=== PATIENT | female | born 1960 | race African-American/Black ===

== ENCOUNTER 2016-07-14 20:49 | Inpatient (IN) | payer MEDICAID ==
[~2016-07-14] VITALS: Ht 162.6 cm; Wt 132.4 kg
[~2016-07-14 20:49] MED LIST: ALBUTEROL SULF8.5 GM INH; AMLODIPINE BESY10 MG ORAL; ASPIRIN81 MG ORAL; FUROSEMIDE20 M1 ORAL; GABAPENTIN100 MG ORAL; HYDROCHLOROTH12.5 M2 ORAL; METFORMIN HCL500 M1 ORAL; METOPROLOL TAR100 M1 ORAL; NITROSTAT0.4 M1 SL; NORCO 10/3251 EA ORAL; NORCO 5-325 TA1 EACH ORAL; PERCOCET 7.5-31 EACH ORAL; PREDNISONE20 MG ORAL; QUINAPRIL HCL10 MG PO; SOMA350 MG PO; TRAMADOL HCL50 MG ORAL
[2016-07-14 21:20] VITALS: BP 186/97
--- NOTE | 2016-07-14 21:39 | Emergency Room Report ---
History of Present Illness General Chief Complaint: Chest Pain Source: Patient Present Illness HPI Is a 56-year-old female with history hypertension. She also has history of chronic pain and was taking Percocet for her. Because of insurance change, she no longer seen a pain specialist or primary care Dr. She was last seen at [facility] 3 weeks ago for high blood pressure and pain issue. She was brought Tylenol No. 3. She presents with 2 day history of on and off chest pain. And localized to the left chest area. No radiation. No exertional component. No fever or chills. No diaphoresis. No shortness of breath. Because of the continued pain she took nitroglycerin and it did not get better. They gave her headache. She seen here several time for the same presentation. Allergies: Coded Allergies: MORPHINE (Verified Allergy, Severe, rash, 07/31/13) SULFAMETHOXAZOLE (Unverified Allergy, Unknown, 09/15/14) TRIMETHOPRIM (Unverified Allergy, Unknown, 09/15/14) Patient History Past Medical History: see triage record, old chart reviewed, HTN Past Surgical History: other Pertinent Family History: none Social History: Denies: alcohol use, drug use Now: No Immunizations: other Reviewed Nursing Documentation: PMH: Agreed, PSxH: Agreed Nursing Documentation-PMH Hx Hypertension: Yes Hx Asthma: Yes Hx Diabetes: Yes Hx Cancer: No Hx Gastrointestinal Problems: No Review of Systems Eye: Denies: blurred vision, eye pain ENT: Denies: ear pain, nose congestion, throat swelling Respiratory: Denies: cough, shortness of breath Cardiovascular: Reports: chest pain, Denies: palpitations Gastrointestinal: Denies: abdominal pain, diarrhea, nausea, vomiting Musculoskeletal: Denies: back pain, joint pain Skin: Denies: rash Neurological: Denies: headache, numbness Endocrine: Denies: increased thirst, increased urine Hematologic/Lymphatic: Denies: easy bruising All Other Systems: negative except mentioned in HPI Physical Exam Vital Signs Date Time Temp Pulse Resp B/P Pulse Ox O2 Delivery O2 Flow Rate FiO2 07/14/16 21:16 98.2 95 18 186/97 97 vitals with hypertension Sp02 EP Interpretation: reviewed, normal General Appearance: well appearing, no apparent distress, alert, obese Head: normocephalic, atraumatic Eyes: bilateral eye EOMI, bilateral eye PERRL ENT: hearing grossly normal, normal pharynx Neck: full range of motion, supple, no meningismus Respiratory: chest non-tender, lungs clear, normal breath sounds Cardiovascular #1: regular rate, rhythm, no murmur Gastrointestinal: normal bowel sounds, non tender, no mass, no organomegaly, no bruit, non-distended Musculoskeletal: back normal, gait/station normal, normal range of motion Psychiatric: mood/affect normal Skin: warm/dry Medical Decision Making Diagnostic Impression: Primary Impression: Accelerated essential hypertension Additional Impressions: ACS (acute coronary syndrome) Opioid dependence Qualified Codes: F11.20 - Opioid dependence, uncomplicated Chronic pain Qualified Codes: G89.29 - Other chronic pain Morbid obesity with BMI of 45.0-49.9, adult ER Course Patient presents with atypical chest pain. She does have risk factor her blood pressure and age. Because of this, will admit for further workup and cardiology consult. I see no evidence of ACS, PE, dissection to name a few. Lab Results Impression labs normal EKG Diagnostic Results Rate: normal Rhythm: NSR ST Segments: no acute changes Rhythm Strip Diag. Results EP Interpretation: yes Rate: 80 Rhythm: NSR, no PVC's, no ectopy Chest X-Ray Diagnostic Results EP Interpretation: Yes Findings: no consolidation, no effusion, no pneumothorax, no acute cardiopulmonary disease Number of Views: 1 Last Vital Signs Date Time Temp Pulse Resp B/P Pulse Ox O2 Delivery O2 Flow Rate FiO2 07/14/16 21:16 98.2 95 18 186/97 97 Status: improved Disposition: ADMITTED INPATIENT Condition: Serious FUNMI DIAS M.D. Jul 14, 2016 21:39
[2016-07-14] MEDS ORDERED: Aspirin Baby 81mg ORAL ONE (21:45)
[2016-07-14] MEDS ORDERED: HYDROmorphone 1mg/ml Carpuject IVP ONE (21:45)
[2016-07-14 22:12] LABS: BASOPHILS % (AUTO) 1.1 % (0.0-2.0); EOSINOPHILS % (AUTO) 2.1 % (0.0-3.0); LYMPHOCYTES % (AUTO) 25.7 % (20.0-45.0); MEAN CORPUSCULAR HEMOGLOBIN 23.8 PG (27.0-31.0); MEAN CORPUSCULAR HGB CONC 30.1 G/DL (32.0-36.0); MEAN CORPUSCULAR VOLUME 79 FL (80-99); MEAN PLATELET VOLUME 7.3 FL (6.5-10.1); MONOCYTES % (AUTO) 3.8 % (1.0-10.0); NEUTROPHILS % (AUTO) 67.3 % (45.0-75.0); PLATELET COUNT 237 K/UL (150-450); RED CELL DISTRIBUTION WIDTH 15.5 % (11.6-14.8); WHITE BLOOD COUNT 6.6 K/UL (4.8-10.8)
[2016-07-14 22:19] LABS: APPEARANCE,URINE SLIGHTLY CLOUDY; KETONES,URINE 1+ (NEGATIVE); LEUKOCYTE ESTERASE ,URINE 1+ (NEGATIVE); NITRITE,URINE NEGATIVE (NEGATIVE); PH,URINE 5 (4.5-8.0); PROTEIN,URINE 2+ (NEGATIVE); UROBILINOGEN,URINE 1 MG/DL (0.0-1.0)
[2016-07-14 22:20] LABS: ALANINE AMINOTRANSFERASE 11 U/L (3-33); ALBUMIN/GLOBULIN RATIO 1.2 (1.0-2.7); ANION GAP 15 (5-15); ASPARTATE AMINO TRANSFERASE 22 U/L (5-40); CALCIUM 9.7 mg/dL (8.6-10.2); CARBON DIOXIDE 28 mEQ/L (20-30); CHLORIDE 99 mEQ/L (98-107); CREATININE 0.8 mg/dL (0.5-0.9); GLOMERULAR FILTRATION RATE > 60 mL/min (>60); HEMOLYSIS 143; POTASSIUM 4.1 mEQ/L (3.4-4.9); SODIUM 142 mEQ/L (135-145); TOTAL PROTEIN 7.6 g/dL (6.6-8.7); TROPONIN I < 0.30 ng/mL (<=0.30)
[2016-07-14 22:30] LABS: CKMB < 1.5 ng/mL (< 3.8)
[2016-07-14 22:31] LABS: BACTERIA,URINE FEW /HPF; CALCIUM OXALATE CRYSTALS,UR MANY /LPF; MUCUS,URINE MANY /LPF (NONE/OCC); RBC,URINE 0-2 /HPF (0 - 2); SQUAMOUS EPITHELIAL CELL,UR MANY /LPF (NONE/OCC)
[2016-07-14 23:29] VITALS: BP 150/81
--- NOTE | 2016-07-14 23:57 | History & Physical ---
History and Physical History & Physicial H&P dictated [id number] CHRIS HARRINGTON M.D. Jul 14, 2016 23:57
[2016-07-15] MEDS ORDERED: Norco 5mg/325mg tab ORAL ONE (01:15)
[2016-07-15] MEDS ORDERED: Aspirin Baby 81mg ORAL ONE (02:00)
[2016-07-15 02:31] VITALS: BP 133/86
[2016-07-15 04:00] VITALS: BP 134/87
[2016-07-15] MEDS ORDERED: POTASSIUM CHLO20 ME1 PO (04:47)
--- NOTE | 2016-07-15 05:29 | History and Physical Report ---
DATE OF ADMISSION: 07/14/2016 REASON FOR ADMISSION: Chest pain. HISTORY OF PRESENT ILLNESS: This is a 56-year-old female with history of RA, hypertension, asthma, and diabetes type 2, presents for evaluation of left chest pain x3 days. She describes the chest pain is under her left breath that is sharp in nature, nonexertional, and nonradiating. She states that there is no factor that make the chest pain worse. She denies any GERD. She states that she has shortness of breath sometimes. She has some diaphoresis today, but no nausea or vomiting. She states that the chest pain is intermittent and stopped at one point and came back where she states her chest pain was slightly alleviated early today with nitroglycerin. She also reports bilateral knee pain, which she attributes to her RA. The patient denies any pleuritic nature to her chest pain. The patient has left heart catheterization eight years ago at [facility] without any stents placed. PAST MEDICAL HISTORY: Includes RA, hypertension, left arm nerve damage, asthma, and diabetes. PAST SURGICAL HISTORY: Negative. MEDICATIONS: Reviewed in [employer] ALLERGIES: To morphine and Bactrim. SOCIAL HISTORY: The patient smokes three cigarettes per day. She does not drink alcohol . PHYSICAL EXAMINATION: GENERAL: The patient appears comfortable. VITAL SIGNS: Temperature is 98.2 degrees, pulse is 75, respiratory rate 18, blood pressure 186/97, and O2 saturation is 97% on room air. HEENT: Normocephalic/atraumatic. NECK: Supple. No JVD. LUNGS: Clear to auscultation bilaterally. No crackles, rhonchi, or rales. CARDIOVASCULAR: Regular rate and rhythm. Normal S1 and S2. ABDOMEN: Soft, nontender, and nondistended. EXTREMITIES: No clubbing, cyanosis, or edema. PSYCHIATRIC: Appropriate mood and affect. NEUROLOGIC: The patient can move all extremities without any difficulty. LABORATORY AND DIAGNOSTIC DATA: CBC, white count 6.6, hemoglobin 14, hematocrit 45.1, and platelet count 237,000. BMP, sodium 142, potassium 4.1, chloride 99, CO2 28, BUN 12, and creatinine 0.8. Troponin is less than 0.0. Toxicology positive for marijuana and opiates. UA has many and 5 to 10 WBCs. EKG shows normal sinus rhythm without any ST changes. Chest x-ray shows no consolidation or effusions. ASSESSMENT: 1. Chest pain with risk factors including hypertension and diabetes. 2. Rheumatoid arthritis. 3. Hypertension. 4. Asthma. 5. Diabetes. PLAN: 1. Admit the patient to telemetry unit. 2. Trend troponins. 3. Stress test in the morning. 4. X-rays of both knees. 5. . TIME SPENT: Time spent on History and Physical greater than 35 minutes. Dylan Torres MD DR: Yakelin JOB#: [id number] CC:
[2016-07-15] MEDS ORDERED: Norco 5mg/325mg tab ORAL PRN (05:30)
[2016-07-15] MEDS ORDERED: Norco 10mg/325mg tab ORAL PRN (05:30)
[2016-07-15 07:47] LABS: TROPONIN I < 0.30 ng/mL (<=0.30)
[2016-07-15 08:00] VITALS: BP 145/98
[2016-07-15] MEDS ORDERED: Oxycodone/Acetaminophen 5-325 ORAL PRN ×2 (08:30)
[2016-07-15] MEDS: Heparin 5000 units/ml inj SUBQ SCH ×2 (09:18→21:09)
--- NOTE | 2016-07-15 09:57 | Diagnostic Imaging Report ---
Indication: Chest pain Technique: Single portable AP view of the chest. Findings: Comparison: 01/15/2016 Calcification and elongation of the thoracic aorta are unchanged. The bones and extra pulmonary soft tissues, remainder of the cardiomediastinal silhouette, pulmonary vasculature and parenchyma, and pleural surfaces remain unremarkable. IMPRESSION: Aortosclerosis and probable chronic hypertensive change, stable Otherwise negative portable AP chest, unchanged.
[2016-07-15] MEDS: NovoLOG Insulin Flexpen SUBQ SCH ×3 (11:30→21:00)
[2016-07-15 12:00] VITALS: BP 151/96
[2016-07-15] MEDS ORDERED: NovoLOG Insulin Flexpen SUBQ SCH (12:00)
--- NOTE | 2016-07-15 13:20 | Internal Med Progress Note ---
Subjective Date of Service: Jul 15, 2016 Physician Name Giuseppe Jules Attending Physician Dylan Torres M.D. Current Medications Medications (Trade) Dose Ordered Sig/Rene Route PRN Reason Start Time Stop Time Status Last Admin Dose Admin Atorvastatin Calcium (Lipitor) 80 mg QHS ONCE ORAL 07/15/16 21:00 07/15/16 21:01 Clonidine HCl (Catapres) 0.1 mg EVERY 6 HOURS PRN ORAL sbp>160 07/15/16 02:45 08/14/16 02:44 Dextrose (Dextrose 50%) STAT PRN IV Hypoglycemia 07/15/16 08:30 08/14/16 08:29 Heparin Sodium (Porcine) (Heparin 5000 units/ml) 5,000 units EVERY 12 HOURS SUBQ 07/15/16 09:00 08/14/16 08:59 07/15/16 09:18 Insulin Aspart (NovoLOG) AC+HS SUBQ 07/15/16 11:30 08/14/16 11:29 Oxycodone/ Acetaminophen (Percocet 10/325) 1 tab Q4H PRN ORAL Severe Pain (Pain Scale 7-10) 07/15/16 10:00 07/22/16 09:59 07/15/16 10:05 Oxycodone/ Acetaminophen (Percocet 5-325) 1 tab Q4H PRN ORAL Moderate Pain (Pain Scale 4-6) 07/15/16 08:30 07/22/16 08:29 Allergies: Coded Allergies: MORPHINE (Verified Allergy, Severe, rash, 07/31/13) SULFAMETHOXAZOLE (Unverified Allergy, Unknown, 09/15/14) TRIMETHOPRIM (Unverified Allergy, Unknown, 09/15/14) ROS Limited/Unobtainable: No Constitutional: Reports: no symptoms Cardiovascular: Reports: chest pain Respiratory: Reports: no symptoms Gastrointestinal/Abdominal: Reports: no symptoms Genitourinary: Reports: no symptoms Neurologic/Psychiatric: Reports: no symptoms Subjective 56 F admitted with chest pain. Cover for Int med-Dr Torres. Await cardiology consult. Objective Last Vital Signs Date Time Temp Pulse Resp B/P Pulse Ox O2 Delivery O2 Flow Rate FiO2 07/15/16 08:00 99.1 78 20 145/98 94 Room Air Laboratory Tests Test 07/14/16 21:52 07/14/16 22:00 07/15/16 04:45 White Blood Count 6.6 K/UL (4.8-10.8) Red Blood Count 5.70 M/UL (4.20-5.40) H Hemoglobin 14.0 G/DL (12.0-16.0) Hematocrit 45.1 % (37.0-47.0) Mean Corpuscular Volume 79 FL (80-99) L Mean Corpuscular Hemoglobin 23.8 PG (27.0-31.0) L Mean Corpuscular Hemoglobin Concent 30.1 G/DL (32.0-36.0) L Red Cell Distribution Width 15.5 % (11.6-14.8) H Platelet Count 237 K/UL (150-450) Mean Platelet Volume 7.3 FL (6.5-10.1) Neutrophils (%) (Auto) 67.3 % (45.0-75.0) Lymphocytes (%) (Auto) 25.7 % (20.0-45.0) Monocytes (%) (Auto) 3.8 % (1.0-10.0) Eosinophils (%) (Auto) 2.1 % (0.0-3.0) Basophils (%) (Auto) 1.1 % (0.0-2.0) Sodium Level 142 mEQ/L (135-145) Potassium Level 4.1 mEQ/L (3.4-4.9) Chloride Level 99 mEQ/L (98-107) Carbon Dioxide Level 28 mEQ/L (20-30) Anion Gap 15 (5-15) Blood Urea Nitrogen 12 mg/dL (7-23) Creatinine 0.8 mg/dL (0.5-0.9) Estimat Glomerular Filtration Rate > 60 mL/min (>60) Glucose Level 122 mg/dL (74-106) H Calcium Level 9.7 mg/dL (8.6-10.2) Total Bilirubin < 0.2 mg/dL (0.0-1.2) Aspartate Amino Transf (AST/SGOT) 22 U/L (5-40) Alanine Aminotransferase (ALT/SGPT) 11 U/L (3-33) Alkaline Phosphatase 92 U/L (35-104) Total Creatine Kinase 49 U/L (26-140) 29 U/L (26-140) Creatine Kinase MB < 1.5 ng/mL (< 3.8) Creatine Kinase MB Relative Index Troponin I < 0.30 ng/mL (<=0.30) < 0.30 ng/mL (<=0.30) Total Protein 7.6 g/dL (6.6-8.7) Albumin 4.2 g/dL (3.5-5.2) Globulin 3.4 g/dL Albumin/Globulin Ratio 1.2 (1.0-2.7) Urine Color Yellow Urine Appearance Slightly cloudy Urine pH 5 (4.5-8.0) Urine Specific [place] 1.025 (1.005-1.035) Urine Protein 2+ (NEGATIVE) H Urine Glucose (UA) Negative (NEGATIVE) Urine Ketones 1+ (NEGATIVE) H Urine Occult Blood Negative (NEGATIVE) Urine Nitrite Negative (NEGATIVE) Urine Bilirubin Negative (NEGATIVE) Urine Urobilinogen 1 MG/DL (0.0-1.0) H Urine Leukocyte Esterase 1+ (NEGATIVE) H Urine RBC 0-2 /HPF (0 - 2) Urine WBC 5-10 /HPF (0 - 2) H Urine Squamous Epithelial Cells Many /LPF (NONE/OCC) H Urine Calcium Oxalate Crystals Many /LPF (NONE) Urine Bacteria Few /HPF (NONE) Urine Mucus Many /LPF (NONE/OCC) H Urine Opiates Screen Positive (NEGATIVE) H Urine Barbiturates Screen Negative (NEGATIVE) Phencyclidine (PCP) Screen Negative (NEGATIVE) Urine Amphetamines Screen Negative (NEGATIVE) Urine Benzodiazepines Screen Negative (NEGATIVE) Urine Cocaine Screen Negative (NEGATIVE) Urine Marijuana (THC) Screen Positive (NEGATIVE) H Objective General: alert, cooperative, no distress, appears stated age Head: normocephalic, without obvious abnormality, atraumatic Eyes: conjunctivae/corneas clear. PERRL, EOM's intact Throat: lips, mucosa, and tongue normal. MMM Neck: supple, symmetrical, trachea midline, and no JVD Lungs: clear to auscultation bilaterally Heart: regular rate and rhythm, S1, S2 normal, no murmur, click, rub or gallop Abdomen: soft, non-tender, non-distended, bowel sounds normal; no masses or organomegaly Extremities: extremities normal, atraumatic, no cyanosis or edema Pulses: 2+ and symmetric Skin: skin color, texture, turgor normal; no rashes or lesions Neurologic: grossly normal, no focal deficits Assessment/Plan Problem List: (1) Diabetes mellitus type II, uncontrolled Assessment & Plan: Cont novolog sliding scale. (2) Asthma (3) rheumatoid arthritis pain (4) Chest pain Assessment & Plan: Serial troponin. Await Cardiac stress test and cardiology consult. (5) Hypertension Status: not improved GIUSEPPE JULES Jul 15, 2016 13:20
[2016-07-15 16:00] VITALS: BP 142/92
[2016-07-15] MEDS ORDERED: DOBUTamine 250mg/250ml Premix IV ONE (16:29)
--- NOTE | 2016-07-15 16:50 | Cardiology Report ---
APPROVED REPORT EXAM: Two-dimensional and M-mode echocardiogram with Doppler and color Doppler. INDICATION Chest Pain M-Mode DIMENSIONS IVSd1.5 (0.7-1.1cm)Left Atrium (MM)3.7 (1.6-4.0cm) LVDd5.0 (3.5-5.6cm)Aortic Root4.0 (2.0-3.7cm) PWd1.3 (0.7-1.1cm)Aortic Cusp Exc.2.1 (1.5-2.0cm) LVDs2.8 (2.5-4.0cm) PWs2.0 cm Technically difficult study due to poor acoustic windows. Study quality precludes accurate assessment of regional wall motion. Normal left ventricular chamber size, systolic function and wall motion. Left ventricular ejection fraction estimated to be 60 %. Mild left ventricular hypertrophy. No evidence of pericardial fat or effusion. All other cardiac chamber sizes are within normal limits. Mild focal aortic valve sclerosis with adequate cusp excursion. Mild thickened mitral valve leaflets with normal excursion. Mild mitral annulus and aortic root calcification. Pulmonic valve not well visualized. Normal tricuspid valve structure. IVC dilated at 2.2cm with physiologic collapse. A color flow and spectral Doppler study was performed and revealed: No aortic regurgitation. Mild to moderate mitral regurgitation. Mitral diastolic velocities suggest reduced left ventricular relaxation (Grade I). Trace tricuspid regurgitation. Tricuspid systolic velocities suggests peak right ventricular systolic pressure of 16 mmHg. Trace pulmonic regurgitation present.
[2016-07-15 20:00] VITALS: BP 142/92
[2016-07-16 00:22] VITALS: BP 136/80
[2016-07-16 04:00] VITALS: BP 139/88
[2016-07-16] MEDS: NovoLOG Insulin Flexpen SUBQ SCH ×3 (06:09→16:35)
[2016-07-16 07:53] LABS: TROPONIN I < 0.30 ng/mL (<=0.30)
[2016-07-16 08:02] LABS: BASOPHILS % (AUTO) 1.3 % (0.0-2.0); EOSINOPHILS % (AUTO) 2.2 % (0.0-3.0); LYMPHOCYTES % (AUTO) 29.5 % (20.0-45.0); MEAN CORPUSCULAR HGB CONC 30.5 G/DL (32.0-36.0); MEAN CORPUSCULAR VOLUME 79 FL (80-99); MEAN PLATELET VOLUME 7.7 FL (6.5-10.1); PLATELET COUNT 203 K/UL (150-450); RED BLOOD COUNT 5.45 M/UL (4.20-5.40); RED CELL DISTRIBUTION WIDTH 15.4 % (11.6-14.8); WHITE BLOOD COUNT 5.9 K/UL (4.8-10.8)
[2016-07-16 08:15] VITALS: BP 146/79
[2016-07-16 08:22] LABS: ANION GAP 13 (5-15); CALCIUM 9.1 mg/dL (8.6-10.2); CARBON DIOXIDE 28 mEQ/L (20-30); CHLORIDE 98 mEQ/L (98-107); CREATININE 0.5 mg/dL (0.5-0.9); GLOMERULAR FILTRATION RATE > 60 mL/min (>60); HEMOLYSIS 3; POTASSIUM 3.7 mEQ/L (3.4-4.9); SODIUM 139 mEQ/L (135-145)
[2016-07-16] MEDS: Heparin 5000 units/ml inj SUBQ SCH (09:06)
--- NOTE | 2016-07-16 09:56 | Diagnostic Imaging Report ---
Indication: PAIN Technique: 3 views of the right knee Comparison: None Findings:There is mild narrowing of the medial joint compartment, with associated osteophyte formation. No suprapatellar effusion. No acute fractures. No dislocations. Impression:Degenerative changes, as described. No acute bony trauma
[2016-07-16 11:44] VITALS: BP 124/78
--- NOTE | 2016-07-16 12:22 | Diagnostic Imaging Report ---
Indications: Chest pain Technique: Single day single isotope protocol utilized. Initially, resting images obtained using IV administration 10.5 millicuries 99M technetium Myoview. Subsequently, patient underwent Dobutamine stress testing. See cardiology report for details. During dobutamine infusion, IV administration 31.3 mCi 99 M technetium Myoview. SPECT and planar images obtained. SPECT images gated to 8 phases of the cardiac cycle were also obtained, and reformatted into cine images for evaluation of ejection fraction. Comparison: Findings: Per cardiology report, patient experienced no chest pain. Per cardiology report, resting EKG demonstrates normal sinus rhythm. No ST-T wave changes were noted during infusion. Patient achieved a peak heart rate of 142 beats for minute, and extensive heart rate 139 beats per minute. Imaging demonstrates equivocal decreased post stress perfusion in the inferolateral wall which does not change on the resting images. Calculated post stress ejection fraction 58 %. No focal wall motion abnormality demonstrated. Impression: Nonischemic clinical response to pharmacologic stress, per cardiology report Nonischemic electrocardiographic response to pharmacologic stress, per cardiology report Equivocal fixed decreased perfusion in the inferolateral wall, suspect soft tissue attenuation artifact but infarct not completely excludable. No imaging findings to suggest ischemia, at level of stress achieved. Calculated post stress ejection fraction 58%
--- NOTE | 2016-07-16 12:22 | Diagnostic Imaging Report ---
Indication: PAIN Technique: 3 views of the left knee Comparison: None Findings:There are medial osteophytes. There is minimal if any medial compartmental degenerative joint space narrowing. The remaining joint compartments are unremarkable. There is equivocal tiny suprapatellar effusion. Impression:Minimal degenerative changes, as described No acute bony trauma
--- NOTE | 2016-07-16 15:23 | Internal Med Progress Note ---
Subjective Date of Service: Jul 16, 2016 Physician Name Giuseppe Jules Attending Physician Dylan Torres M.D. Current Medications Medications (Trade) Dose Ordered Sig/Rene Route PRN Reason Start Time Stop Time Status Last Admin Dose Admin Clonidine HCl (Catapres) 0.1 mg EVERY 6 HOURS PRN ORAL sbp>160 07/15/16 02:45 08/14/16 02:44 Dextrose (Dextrose 50%) STAT PRN IV Hypoglycemia 07/15/16 08:30 08/14/16 08:29 Heparin Sodium (Porcine) (Heparin 5000 units/ml) 5,000 units EVERY 12 HOURS SUBQ 07/15/16 09:00 08/14/16 08:59 07/16/16 09:06 Hydromorphone HCl (Dilaudid) 2 mg Q4H PRN IVP Severe Pain (Pain Scale 7-10) 07/15/16 14:00 07/22/16 13:59 07/16/16 11:47 Insulin Aspart (NovoLOG) AC+HS SUBQ 07/15/16 11:30 08/14/16 11:29 07/16/16 11:47 Ondansetron HCl (Zofran) 4 mg Q4H PRN IVP Nausea & Vomiting 07/15/16 13:30 08/14/16 13:29 Allergies: Coded Allergies: MORPHINE (Verified Allergy, Severe, rash, 07/31/13) SULFAMETHOXAZOLE (Unverified Allergy, Unknown, 09/15/14) TRIMETHOPRIM (Unverified Allergy, Unknown, 09/15/14) ROS Limited/Unobtainable: No Constitutional: Reports: no symptoms HEENT: Reports: no symptoms Cardiovascular: Reports: chest pain Respiratory: Reports: no symptoms Gastrointestinal/Abdominal: Reports: no symptoms Genitourinary: Reports: no symptoms Neurologic/Psychiatric: Reports: no symptoms Subjective 56 F admitted with chest pain. Cover for Int med-Dr Torres. See cardiology consult. Objective Last Vital Signs Date Time Temp Pulse Resp B/P Pulse Ox O2 Delivery O2 Flow Rate FiO2 07/16/16 12:00 81 07/16/16 11:44 97.7 18 124/78 96 Room Air Laboratory Tests Test 07/16/16 07:30 White Blood Count 5.9 K/UL (4.8-10.8) Red Blood Count 5.45 M/UL (4.20-5.40) H Hemoglobin 13.1 G/DL (12.0-16.0) Hematocrit 42.8 % (37.0-47.0) Mean Corpuscular Volume 79 FL (80-99) L Mean Corpuscular Hemoglobin 24.0 PG (27.0-31.0) L Mean Corpuscular Hemoglobin Concent 30.5 G/DL (32.0-36.0) L Red Cell Distribution Width 15.4 % (11.6-14.8) H Platelet Count 203 K/UL (150-450) Mean Platelet Volume 7.7 FL (6.5-10.1) Neutrophils (%) (Auto) 61.0 % (45.0-75.0) Lymphocytes (%) (Auto) 29.5 % (20.0-45.0) Monocytes (%) (Auto) 6.0 % (1.0-10.0) Eosinophils (%) (Auto) 2.2 % (0.0-3.0) Basophils (%) (Auto) 1.3 % (0.0-2.0) Sodium Level 139 mEQ/L (135-145) Potassium Level 3.7 mEQ/L (3.4-4.9) Chloride Level 98 mEQ/L (98-107) Carbon Dioxide Level 28 mEQ/L (20-30) Anion Gap 13 (5-15) Blood Urea Nitrogen 11 mg/dL (7-23) Creatinine 0.5 mg/dL (0.5-0.9) Estimat Glomerular Filtration Rate > 60 mL/min (>60) Glucose Level 112 mg/dL (74-106) H Calcium Level 9.1 mg/dL (8.6-10.2) Troponin I < 0.30 ng/mL (<=0.30) Intake and Output 07/15/16 07/16/16 19:00 07:00 Intake Total 240 ml Balance 240 ml Intake Oral 240 ml # Voids 1 2 # Bowel Movements 1 Objective General: alert, cooperative, no distress, appears stated age Head: normocephalic, without obvious abnormality, atraumatic Eyes: conjunctivae/corneas clear. PERRL, EOM's intact Throat: lips, mucosa, and tongue normal. MMM Neck: supple, symmetrical, trachea midline, and no JVD Lungs: clear to auscultation bilaterally Heart: regular rate and rhythm, S1, S2 normal, no murmur, click, rub or gallop Abdomen: soft, non-tender, non-distended, bowel sounds normal; no masses or organomegaly Extremities: extremities normal, atraumatic, no cyanosis or edema Pulses: 2+ and symmetric Skin: skin color, texture, turgor normal; no rashes or lesions Neurologic: grossly normal, no focal deficits Assessment/Plan Problem List: (1) Diabetes mellitus type II, uncontrolled Assessment & Plan: Cont novolog sliding scale. (2) Asthma (3) rheumatoid arthritis pain (4) Chest pain Assessment & Plan: Serial troponin. Nuclear Cardiac stress test+non ischemic. See cardiology consult. (5) Hypertension Status: stable Assessment/Plan D/C home today. F/U primary care physician in 1 week GIUSEPPE JULES Jul 16, 2016 15:23
[2016-07-16 15:39] VITALS: BP 134/79
--- NOTE | 2016-07-17 16:18 | Cardiology Report ---
APPROVED REPORT EKG Measurement Heart [id number] CT [id number] Normal sinus rhythm Normal ECG
--- NOTE | 2016-07-17 19:01 | Discharge Summary ---
Discharge Summary Hospital Course Date of Admission Jul 14, 2016 at 23:08 Date of Discharge Jul 16, 2016 at 17:43 Admitting Diagnosis Acute Coronary syndrome REGAN Nicholson is a 56 year old female who was admitted on Jul 14, 2016 at 23:08 for Acute Coronary Syndrome Hospital Course [id number] Discharge Discharge Disposition Patient was discharged to Home (01) Discharge Diagnoses: Nandini Tello NP Jul 17, 2016 19:01
--- NOTE | 2016-07-18 00:48 | Discharge Summary 2 SIG ---
DATE OF ADMISSION: 07/14/2016 DATE OF DISCHARGE: 07/16/2016 ATTENDING PHYSICIAN: Dylan Torres M.D. BRIEF HOSPITAL COURSE: The patient is a 56-year-old, female with history of RA, hypertension, asthma and diabetes type 2, presented to ED for evaluation of chest pain that has been occurring for three days, described to be under her left breast and sharp in nature, which is nonexertional and nonradiating. This was accompanied by occasional shortness of breath and diaphoresis, but no nausea or vomiting. Pain has been intermittent and was slightly relieved with nitroglycerin. She also reported bilateral knee pain, which was attributed to rheumatoid arthritis. She had a left heart catheterization 8 years ago at [facility] without any stents placed. Due to risk factors including hypertension and diabetes and being a smoker, the patient was admitted to telemetry unit for cardiac workup. EKG showed normal sinus rhythm without any ST changes. Chest x-ray showed no consolidation or effusion. Echocardiogram showed ejection fraction of 60%. She underwent a nuclear cardiac stress test. Results were nonischemic. She had an x-ray of the knee, which showed degenerative changes with no acute bony trauma. She was discharged home. Advised to follow up with PMD in a week. FINAL DIAGNOSES: 1. Chest pain. 2. Diabetes mellitus type 2, uncontrolled. 3. Asthma. 4. Rheumatoid arthritis with pain. 5. Hypertension. Giuseppe Christie M.D. I have been assigned to dictate discharge summary on this account and I was not involved in the patient's management. Nandini Tello N.P. DR: MARELY JOB#: [id number] CC: [id number]
== END 2016-07-16 17:43 | disposition home or self-care (01) | DRG 198 ==
LOC: ENRESERVDT → ENRESERVTM → EMR 23:04 → 2E 23:08 → EDBEDREQ 07-15 01:53
DX: R07.89 Other chest pain (principal); I25.10 Atherosclerotic heart disease of native coronary artery without angina pectoris; E11.65 Type 2 diabetes mellitus with hyperglycemia; I10 Essential (primary) hypertension; G89.29 Other chronic pain; M06.9 Rheumatoid arthritis, unspecified; J45.909 Unspecified asthma, uncomplicated; F17.200 Nicotine dependence, unspecified, uncomplicated; Z88.6 Allergy status to analgesic agent; Z88.2 Allergy status to sulfonamides; Z88.8 Allergy status to other drugs, medicaments and biological substances; Z98.61 Coronary angioplasty status; F11.20 Opioid dependence, uncomplicated; E66.01 Morbid (severe) obesity due to excess calories; Z68.43 Body mass index [BMI] 50.0-59.9, adult
CPT/HCPCS: 36415; 71010; 78452; 80048; 80053; 80300; 81003; 82550; 82553; 82962; 84484; 85025; 87081; 93005; 93017; 93306; J1815

== ENCOUNTER 2016-09-08 22:18 | Emergency (ER) | payer MEDICAID ==
[~2016-09-08] VITALS: Ht 165.1 cm; Wt 131.1 kg
[~2016-09-08 22:18] MED LIST changes: +POTASSIUM CHLO20 ME1 PO
[2016-09-08] MEDS ORDERED: NORCO 10-325 T1 EACH ORAL (22:32)
[2016-09-08] MEDS ORDERED: DILAUDID2 MG ORAL (22:32)
[2016-09-08] MEDS ORDERED: HYDROmorphone 1mg/ml Carpuject IVP ONE (23:00)
[2016-09-08 23:19] LABS: BASOPHILS % (AUTO) 1.1 % (0.0-2.0); EOSINOPHILS % (AUTO) 1.9 % (0.0-3.0); LYMPHOCYTES % (AUTO) 23.8 % (20.0-45.0); MEAN CORPUSCULAR HEMOGLOBIN 25.7 PG (27.0-31.0); MEAN CORPUSCULAR HGB CONC 32.3 G/DL (32.0-36.0); MEAN CORPUSCULAR VOLUME 80 FL (80-99); MEAN PLATELET VOLUME 7.8 FL (6.5-10.1); MONOCYTES % (AUTO) 4.3 % (1.0-10.0); NEUTROPHILS % (AUTO) 68.8 % (45.0-75.0); PLATELET COUNT 175 K/UL (150-450); RED BLOOD COUNT 4.82 M/UL (4.20-5.40); WHITE BLOOD COUNT 6.7 K/UL (4.8-10.8)
[2016-09-08 23:26] VITALS: BP 160/86
[2016-09-08 23:27] LABS: INR 0.9 (0.9-1.1); PROTHROMBIN TIME 9.6 SEC (9.30-11.50)
[2016-09-08 23:33] LABS: TROPONIN I < 0.30 ng/mL (<=0.30)
[2016-09-08 23:36] LABS: ALANINE AMINOTRANSFERASE 9 U/L (3-33); ALBUMIN/GLOBULIN RATIO 1.4 (1.0-2.7); ASPARTATE AMINO TRANSFERASE 15 U/L (5-40); CALCIUM 9.9 mg/dL (8.6-10.2); CARBON DIOXIDE 30 mEQ/L (20-30); CHLORIDE 101 mEQ/L (98-107); CREATININE 0.7 mg/dL (0.5-0.9); GLOMERULAR FILTRATION RATE > 60 mL/min (>60); HEMOLYSIS 34; POTASSIUM 4.2 mEQ/L (3.4-4.9); SODIUM 143 mEQ/L (135-145); TOTAL PROTEIN 7.4 g/dL (6.6-8.7)
[2016-09-08 23:37] LABS: ANION GAP 12 (5-15)
[2016-09-09] MEDS ORDERED: HYDROmorphone 1mg/ml Carpuject IVP ONE (00:30)
[2016-09-09 00:41] LABS: ERYTHROCYTE SEDIMENTATION RATE 34 MM/HR (0-30)
[2016-09-09 01:55] VITALS: BP 169/86
--- NOTE | 2016-09-09 02:02 | Emergency Room Report ---
History of Present Illness General Chief Complaint: Pain Source: Patient Present Illness HPI Patient presents with severe sharp mid sternal chest pain that is worsened with exertion, breathing, position change and palpation. She has had this before and has recently undergone stress testing which was negative. She has been taking tylenol with minimal relief. She denies cough or fever. She has h/o rheumatoid arthritis which is currently not being treated. In the past she has been on prednisone but has significant weight gain. She had taken motrin in the past - but was taking >800 mg and had problems with GI bleeding (not require transfusions). No recent hematemesis or melena. In the past she has had relief with dilaudid and other opiates at home. No rashes. She does have some other joint tenderness, but not as severe as chest. No history of blood clots or calf pain. With last admission, she was told that she had some congestive heart failure and is worried about this. She has had some edema which is not worsened. Allergies: Coded Allergies: MORPHINE (Verified Allergy, Severe, rash, 07/31/13) SULFAMETHOXAZOLE (Unverified Allergy, Unknown, 09/15/14) TRIMETHOPRIM (Unverified Allergy, Unknown, 09/15/14) Patient History Past Medical History: see triage record Social History: Reports: smoking Social History Narrative with family Reviewed Nursing Documentation: PMH: Agreed, PSxH: Agreed Nursing Documentation-PMH Hx Cardiac Problems: Yes - RHEUMATOID ARTHRITIS Hx Hypertension: Yes Hx Asthma: Yes Hx Diabetes: Yes Hx Cancer: No Hx Gastrointestinal Problems: No Review of Systems All Other Systems: negative except mentioned in HPI Physical Exam Vital Signs Date Time Temp Pulse Resp B/P Pulse Ox O2 Delivery O2 Flow Rate FiO2 09/08/16 22:26 98.4 86 16 181/101 96 Room Air Sp02 EP Interpretation: reviewed, normal General Appearance: well appearing, no apparent distress, GCS 15, obese Head: normocephalic Eyes: bilateral eye PERRL, bilateral eye normal inspection ENT: moist mucus membranes Neck: supple Respiratory: lungs clear, normal breath sounds, other Cardiovascular #1: regular rate, rhythm, edema - trace Cardiovascular #2: 2+ radial (R) Gastrointestinal: normal inspection, normal bowel sounds, non tender, no mass, non-distended Musculoskeletal: back normal, gait/station normal, normal range of motion, no calf tenderness, Dmitri's Sign negative Neurologic: alert, oriented x3, grossly normal Psychiatric: anxious Skin: normal inspection, warm/dry Medical Decision Making Diagnostic Impression: Primary Impression: Chest pain Qualified Codes: R07.9 - Chest pain, unspecified Additional Impression: Rheumatoid arthritis Qualified Codes: M06.9 - Rheumatoid arthritis, unspecified ER Course Patient with chest pain. DDx; AMI, CAD, PE, chest wall pain, exacerbation of RA amongst others. Exam more c/w chest wall but need to exclude sig cor etiologies. EKG, CXR, labs ordered. Pain treated and patient monitored. EKG no ischemia or injury. CXR with generous hilae, but no CHF. Labs with normal BNP and troponin. Elevated ESR. Improved, but request more analgesia. 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 CURES reviewed. Improved. No cardiopulmonary emergency at this time. Patient stable for outpatient observation and treatment. Laboratory Tests Test 09/08/16 23:06 White Blood Count 6.7 K/UL (4.8-10.8) Red Blood Count 4.82 M/UL (4.20-5.40) Hemoglobin 12.4 G/DL (12.0-16.0) Hematocrit 38.4 % (37.0-47.0) Mean Corpuscular Volume 80 FL (80-99) Mean Corpuscular Hemoglobin 25.7 PG (27.0-31.0) L Mean Corpuscular Hemoglobin Concent 32.3 G/DL (32.0-36.0) Red Cell Distribution Width 15.0 % (11.6-14.8) H Platelet Count 175 K/UL (150-450) Mean Platelet Volume 7.8 FL (6.5-10.1) Neutrophils (%) (Auto) 68.8 % (45.0-75.0) Lymphocytes (%) (Auto) 23.8 % (20.0-45.0) Monocytes (%) (Auto) 4.3 % (1.0-10.0) Eosinophils (%) (Auto) 1.9 % (0.0-3.0) Basophils (%) (Auto) 1.1 % (0.0-2.0) Erythrocyte Sedimentation Rate 34 MM/HR (0-30) H Prothrombin Time 9.6 SEC (9.30-11.50) Prothrombin Time INR 0.9 (0.9-1.1) PTT 26 SEC (23-33) Sodium Level 143 mEQ/L (135-145) Potassium Level 4.2 mEQ/L (3.4-4.9) Chloride Level 101 mEQ/L (98-107) Carbon Dioxide Level 30 mEQ/L (20-30) Anion Gap 12 (5-15) Blood Urea Nitrogen 10 mg/dL (7-23) Creatinine 0.7 mg/dL (0.5-0.9) Estimate Glomerular Filtration Rate > 60 mL/min (>60) Glucose Level 104 mg/dL (74-106) Calcium Level 9.9 mg/dL (8.6-10.2) Total Bilirubin < 0.2 mg/dL (0.0-1.2) Aspartate Amino Transferase (AST) 15 U/L (5-40) Alanine Aminotransferase (ALT) 9 U/L (3-33) Alkaline Phosphatase 99 U/L (35-104) Total Creatine Kinase 74 U/L (26-140) Troponin I < 0.30 ng/mL (<=0.30) Pro-B-Type Natriuretic Peptide 58 pg/mL (0-125) Total Protein 7.4 g/dL (6.6-8.7) Albumin 4.4 g/dL (3.5-5.2) Globulin 3.0 g/dL Albumin/Globulin Ratio 1.4 (1.0-2.7) EKG Diagnostic Results Rate: normal Rhythm: NSR ST Segments: no acute changes Rhythm Strip Diag. Results EP Interpretation: yes Rhythm: NSR, no PVC's, no ectopy Chest X-Ray Diagnostic Results EP Interpretation: Yes Findings: no consolidation, no effusion, no pneumothorax, no acute cardiopulmonary disease, other - large zak Number of Views: 1 Last Vital Signs Date Time Temp Pulse Resp B/P Pulse Ox O2 Delivery O2 Flow Rate FiO2 09/09/16 02:34 98.4 81 16 169/86 92 Room Air Pulse ox observed by me to be 96%. Status: improved Disposition: HOME, SELF-CARE Condition: Improved Scripts Hydrocodone Bit/Acetaminophen 5-325* (NORCO 5-325*) 1 Each Tablet 1 TAB ORAL Q6H Y for For Pain, #10 TAB 0 Refills Prov: Tiara,Dylan M.D. 09/09/16 Famotidine (PEPCID) 20 Mg Tablet 20 MG ORAL DAILY, #30 TAB 0 Refills Prov: Dylan Menjivar M.D. 09/09/16 Ibuprofen* (MOTRIN*) 600 Mg Tablet 600 MG ORAL Q8H Y for For Pain, #16 TAB 0 Refills Prov: Dylan Menjivar M.D. 09/09/16 Referrals: [facility],REFERRING (PCP) Dylan Menjivar M.D. Sep 09, 2016 02:02
[2016-09-09] MEDS ORDERED: NORCO 5-325 TA1 EACH ORAL (02:21)
[2016-09-09] MEDS ORDERED: PEPCID20 MG ORAL (02:21)
[2016-09-09] MEDS ORDERED: IBUPROFEN600 MG ORAL (02:21)
[2016-09-09 02:34] VITALS: BP 169/86
--- NOTE | 2016-09-09 11:27 | Diagnostic Imaging Report ---
Indication: Chest Pain Comparison: 07/14/16 A single view chest radiograph was obtained. Findings: Mild cardiomegaly and enlargement of the aorta noted. Pulmonary vascularity is appropriate. The diaphragmatic contour is smooth and costophrenic angles are sharp. No pleural effusions are identified. The bones are unremarkable. Impression: No acute findings Cardiomegaly. Atherosclerotic vascular disease
--- NOTE | 2016-09-10 07:27 | Cardiology Report ---
APPROVED REPORT EKG Measurement Heart [id number] Normal sinus rhythm Normal ECG
== END 2016-09-09 02:35 | disposition home or self-care (01) ==
LOC: EMR 22:58
DX: R07.9 Chest pain, unspecified (principal); M06.9 Rheumatoid arthritis, unspecified; Z88.2 Allergy status to sulfonamides; Z88.6 Allergy status to analgesic agent; I10 Essential (primary) hypertension; E11.9 Type 2 diabetes mellitus without complications; R60.9 Edema, unspecified
CPT/HCPCS: 36415; 71010; 80053; 82550; 83880; 84484; 85025; 85610; 85651; 85730; 93005; 96374; 96375; 99284; J1170; J2405

== ENCOUNTER 2016-12-20 22:03 | Emergency (ER) | payer MEDICAID ==
[~2016-12-20] VITALS: Ht 162.6 cm; Wt 131.5 kg
[~2016-12-20 22:03] MED LIST changes: +DILAUDID2 MG ORAL; +IBUPROFEN600 MG ORAL; +NORCO 10-325 T1 EACH ORAL; +PEPCID20 MG ORAL
[2016-12-20] MEDS ORDERED: PREDNISONE20 MG ORAL (22:34)
[2016-12-20] MEDS ORDERED: ACETAMINOPHEN-1 EAC1 ORAL (22:34)
[2016-12-20 22:41] VITALS: BP 157/89
[2016-12-20 22:42] VITALS: BP 157/89
[2016-12-20] MEDS ORDERED: Tylenol #3 tab (300mg/30mg) ORAL ONE (22:45)
--- NOTE | 2016-12-20 23:25 | Emergency Room Report ---
History of Present Illness General Chief Complaint: Chest Pain Source: Patient Present Illness HPI [id number] walk-in with "my RA is acting up." C/o pain to right index finger, left middle finger and chest pain for 6-months Denies SOB, fever/chills, redness/warmth to chest, joints States PMD made her referrals to Rheum but hasnt been able to go because she lost ID, then got ID back Isnt on any tx for RA Takes norco or percocet Cant take motrin because of gastritis Multiple visits here for similar. ?opiod dependence, drug seeking in past States RA was diagnosed "in the ." Not sure how diagnosed. Is not aware of RF serum testing Allergies: Coded Allergies: MORPHINE (Verified Allergy, Severe, rash, 07/31/13) SULFAMETHOXAZOLE (Unverified Allergy, Unknown, 09/15/14) TRIMETHOPRIM (Unverified Allergy, Unknown, 09/15/14) Patient History Past Medical History: other - ?RA Past Surgical History: none Pertinent Family History: none Social History: Denies: smoking, alcohol use, drug use Now: No Immunizations: UTD Reviewed Nursing Documentation: PMH: Agreed, PSxH: Agreed Nursing Documentation-PMH Hx Cardiac Problems: Yes - RHEUMATOID ARTHRITIS Hx Hypertension: Yes Hx Asthma: Yes Hx Diabetes: Yes Hx Cancer: No Hx Gastrointestinal Problems: No Review of Systems All Other Systems: negative except mentioned in HPI Physical Exam Vital Signs Date Time Temp Pulse Resp B/P (MAP) Pulse Ox O2 Delivery O2 Flow Rate FiO2 12/20/16 22:11 98.4 91 16 170/110 97 Room Air Sp02 EP Interpretation: reviewed, normal General Appearance: normal inspection, well appearing, no apparent distress, alert, GCS 15, non-toxic, obese Head: normocephalic, atraumatic Eyes: bilateral eye PERRL, bilateral eye EOMI ENT: normal ENT inspection, hearing grossly normal, normal voice Neck: normal inspection, full range of motion, supple, no bony tend Respiratory: normal inspection, lungs clear, normal breath sounds, no respiratory distress, no retraction, no wheezing Cardiovascular #1: regular rate, rhythm, no edema Gastrointestinal: normal inspection, normal bowel sounds, non tender, soft, no guarding, no hernia Genitourinary: no CVA tenderness Musculoskeletal: normal inspection, back normal, normal range of motion, Dmitri' s Sign negative, other - No inflammation of joints of hands, fingers, knees Neurologic: normal inspection, alert, oriented x3, responsive, paperboard box maker III-XII nml as tested, motor strength/tone normal, speech normal Psychiatric: normal inspection, judgement/insight normal, mood/affect normal Skin: normal inspection, normal color, no rash Lymphatic: normal inspection Medical Decision Making Diagnostic Impression: Primary Impression: Joint pain Qualified Codes: M25.541 - Pain in joints of right hand; M25.542 - Pain in joints of left hand ER Course Joint pain ?RA given no Rheum following, no history of RF testing ?acute flare - no joint swelling, warmth, erythema Will try trial of prednisone Encouraged PMD followup for Rheum referral DC home Last Vital Signs Date Time Temp Pulse Resp B/P (MAP) Pulse Ox O2 Delivery O2 Flow Rate FiO2 12/20/16 22:42 98.4 85 14 157/89 100 Room Air Status: improved Disposition: HOME, SELF-CARE Condition: Improved Scripts Acetaminophen With Codeine (T#3) (TYLENOL #3 TAB*) Y Tab 1 TAB ORAL Q8H Y for For Pain, #20 TAB Prov: RIO SPRAGUE M.D. 12/20/16 Prednisone* (PREDNISONE*) 20 Mg Tablet 40 MG ORAL DAILY for 5 Days, #10 TAB Prov: RIO SPRAGUE M.D. 12/20/16 Referrals: [facility],REFERRING (PCP) Patient Instructions: Arthritis, [id number] Additional Instructions: - Take prednisone twice daily next 5 days - Follow up with Rheum referral and request tx for RA RIO SPRAGUE M.D. Dec 20, 2016 23:25
== END 2016-12-20 22:45 | disposition home or self-care (01) ==
LOC: EMR 22:23
DX: K05.219 Aggressive periodontitis, localized, unspecified severity (principal); Z88.1 Allergy status to other antibiotic agents
CPT/HCPCS: 99284

== ENCOUNTER 2017-01-26 20:05 | Inpatient (IN) | payer MEDICAID ==
[~2017-01-26] VITALS: Ht 162.6 cm; Wt 137.4 kg
[~2017-01-26 20:05] MED LIST changes: +ACETAMINOPHEN-1 EAC1 ORAL
[2017-01-26 20:41] VITALS: BP 182/105
--- NOTE | 2017-01-26 20:51 | Emergency Room Report ---
History of Present Illness General Chief Complaint: Chest Pain Source: Patient Present Illness HPI Patient presents with complaints of chest pain Ongoing since this morning patient reports that she will up with the pain patient was history of rheumatoid arthritis cardiac disease diabetes Pain is 5/10 heaviness midsternal Patient also had other complaints including bilateral knee pain And more generalized weakness recently Denies any change of position Allergies: Coded Allergies: SULFAMETHOXAZOLE (Unverified Allergy, Unknown, 09/15/14) TRIMETHOPRIM (Unverified Allergy, Unknown, 09/15/14) MORPHINE (Verified Adverse Reaction, Severe, rash, 01/27/17) Verified with patient. She had itching with morphine 9 yrs ago. But the latest morphine shot was 2 yrs ago in a hospital but no adverse reaction at all. 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 Review of Systems All Other Systems: negative except mentioned in HPI Physical Exam Vital Signs Date Time Temp Pulse Resp B/P (MAP) Pulse Ox O2 Delivery O2 Flow Rate FiO2 01/26/17 20:27 98.4 91 17 169/125 98 Room Air Sp02 EP Interpretation: reviewed, normal General Appearance: well appearing, no apparent distress Head: normocephalic, atraumatic Eyes: bilateral eye PERRL, bilateral eye EOMI ENT: hearing grossly normal, normal pharynx, TMs + canals normal, uvula midline Neck: full range of motion, supple, no meningismus, no bony tend Respiratory: lungs clear, normal breath sounds, no rhonchi, no respiratory distress, no retraction, no accessory muscle use Cardiovascular #1: normal peripheral pulses, regular rate, rhythm, no edema, no gallop, no JVD, no murmur Gastrointestinal: normal bowel sounds, non tender, soft, no mass, no organomegaly, non-distended, no guarding, no hernia, no pulsatile mass, no rebound Genitourinary: no CVA tenderness Musculoskeletal: normal inspection Neurologic: oriented x3, responsive, tick eradicator III-XII nml as tested, motor strength/ tone normal, sensory intact Psychiatric: mood/affect normal Skin: normal color, no rash, warm/dry, palpation normal Lymphatic: normal inspection, no adenopathy Medical Decision Making Diagnostic Impression: Primary Impression: ACS (acute coronary syndrome) ER Course Patient is a fairly complex patient with multiple differential to consideration including but not limited to cardiac cardiopulmonary and vascular emergencies Patient's EKG and troponin are negative x-ray shows similar findings to previous with mediastinal pathology but no obvious acute findings patient has done better with acute intervention given her risk factors and presentation the patient requires admission Labs Test 01/26/17 20:57 White Blood Count 7.0 K/UL (4.8-10.8) Red Blood Count 5.40 M/UL (4.20-5.40) Hemoglobin 11.6 G/DL (12.0-16.0) Hematocrit 41.4 % (37.0-47.0) Mean Corpuscular Volume 77 FL (80-99) Mean Corpuscular Hemoglobin 21.5 PG (27.0-31.0) Mean Corpuscular Hemoglobin Concent 28.1 G/DL (32.0-36.0) Red Cell Distribution Width 17.1 % (11.6-14.8) Platelet Count 204 K/UL (150-450) Mean Platelet Volume 10.3 FL (6.5-10.1) Neutrophils (%) (Auto) 66.5 % (45.0-75.0) Lymphocytes (%) (Auto) 24.9 % (20.0-45.0) Monocytes (%) (Auto) 5.4 % (1.0-10.0) Eosinophils (%) (Auto) 2.1 % (0.0-3.0) Basophils (%) (Auto) 1.1 % (0.0-2.0) Sodium Level 143 MMOL/L (136-145) Potassium Level 3.5 MMOL/L (3.5-5.1) Chloride Level 106 MMOL/L (98-107) Carbon Dioxide Level 31 MMOL/L (21-32) Anion Gap 6 mmol/L (5-15) Blood Urea Nitrogen 13 mg/dL (7-18) Creatinine 0.8 MG/DL (0.55-1.30) Estimat Glomerular Filtration Rate > 60 mL/min (>60) Glucose Level 106 MG/DL (74-106) Calcium Level 9.8 MG/DL (8.5-10.1) Total Bilirubin 0.2 MG/DL (0.2-1.0) Aspartate Amino Transf (AST/SGOT) 10 U/L (15-37) Alanine Aminotransferase (ALT/SGPT) 16 U/L (12-78) Alkaline Phosphatase 110 U/L (46-116) Total Creatine Kinase 45 U/L (26-308) Creatine Kinase MB < 0.5 NG/ML (0.0-3.6) Creatine Kinase MB Relative Index 1.1 Troponin I 0.003 ng/mL (0.000-0.056) Total Protein 7.9 G/DL (6.4-8.2) Albumin 3.8 G/DL (3.4-5.0) Globulin 4.1 g/dL Albumin/Globulin Ratio 0.9 (1.0-2.7) Labs Test 01/26/17 20:57 White Blood Count 7.0 K/UL (4.8-10.8) Red Blood Count 5.40 M/UL (4.20-5.40) Hemoglobin 11.6 G/DL (12.0-16.0) Hematocrit 41.4 % (37.0-47.0) Mean Corpuscular Volume 77 FL (80-99) Mean Corpuscular Hemoglobin 21.5 PG (27.0-31.0) Mean Corpuscular Hemoglobin Concent 28.1 G/DL (32.0-36.0) Red Cell Distribution Width 17.1 % (11.6-14.8) Platelet Count 204 K/UL (150-450) Mean Platelet Volume 10.3 FL (6.5-10.1) Neutrophils (%) (Auto) 66.5 % (45.0-75.0) Lymphocytes (%) (Auto) 24.9 % (20.0-45.0) Monocytes (%) (Auto) 5.4 % (1.0-10.0) Eosinophils (%) (Auto) 2.1 % (0.0-3.0) Basophils (%) (Auto) 1.1 % (0.0-2.0) Troponin I 0.003 ng/mL (0.000-0.056) EKG Diagnostic Results Rate: normal Rhythm: NSR ST Segments: other - Nonspecific ST and T-wave changes ASA given to the pt in ED: Yes Rhythm Strip Diag. Results EP Interpretation: yes Rate: 88 Rhythm: NSR, no PVC's, no ectopy Chest X-Ray Diagnostic Results Chest X-Ray Diagnostic Results : Chest X-Ray Ordered: Yes # of Views/Limited/Complete: 1 View Indication: Chest Pain EP Interpretation: Yes Interpretation: no consolidation, no effusion, no pneumothorax, other - Increased pulmonary and mediastinal markings, tortuous aorta appearance cardiomegaly similar to previous, Impression: No acute disease Electronically Signed by: Rubi Villarreal DO Last Vital Signs Date Time Temp Pulse Resp B/P (MAP) Pulse Ox O2 Delivery O2 Flow Rate FiO2 01/26/17 20:41 89 18 Room Air 01/26/17 20:41 98.0 182/105 98 Status: improved Disposition: ADMITTED INPATIENT Condition: Serious Referrals: [facility],REFERRING (PCP) RUBI VILLARREAL D.O. Jan 26, 2017 20:51
[2017-01-26] MEDS ORDERED: Hydromorphone 0.5mg/0.5ml inj IVP ONE (21:00)
[2017-01-26 21:09] LABS: BASOPHILS % (AUTO) 1.1 % (0.0-2.0); EOSINOPHILS % (AUTO) 2.1 % (0.0-3.0); LYMPHOCYTES % (AUTO) 24.9 % (20.0-45.0); MEAN CORPUSCULAR HEMOGLOBIN 21.5 PG (27.0-31.0); MEAN CORPUSCULAR HGB CONC 28.1 G/DL (32.0-36.0); MEAN CORPUSCULAR VOLUME 77 FL (80-99); MEAN PLATELET VOLUME 10.3 FL (6.5-10.1); MONOCYTES % (AUTO) 5.4 % (1.0-10.0); NEUTROPHILS % (AUTO) 66.5 % (45.0-75.0); PLATELET COUNT 204 K/UL (150-450); RED CELL DISTRIBUTION WIDTH 17.1 % (11.6-14.8)
[2017-01-26 21:43] LABS: ALANINE AMINOTRANSFERASE 16 U/L (12-78); ALBUMIN/GLOBULIN RATIO 0.9 (1.0-2.7); ANION GAP 6 mmol/L (5-15); ASPARTATE AMINO TRANSFERASE 10 U/L (15-37); CALCIUM 9.8 MG/DL (8.5-10.1); CARBON DIOXIDE 31 MMOL/L (21-32); CHLORIDE 106 MMOL/L (98-107); CKMB < 0.5 NG/ML (0.0-3.6); CREATININE 0.8 MG/DL (0.55-1.30); GLOMERULAR FILTRATION RATE > 60 mL/min (>60); POTASSIUM 3.5 MMOL/L (3.5-5.1); SODIUM 143 MMOL/L (136-145); TOTAL PROTEIN 7.9 G/DL (6.4-8.2)
[2017-01-26 22:41] VITALS: BP 156/86
[2017-01-27] MEDS ORDERED: Hydromorphone 0.5mg/0.5ml inj IVP ONE
[2017-01-27] MEDS ORDERED: HYDROmorphone 1mg/ml Carpuject IVP ONE (01:30)
[2017-01-27 02:35] VITALS: BP 155/74
[2017-01-27 04:00] VITALS: BP 148/66
[2017-01-27] MEDS ORDERED: dilTIAZem HCl 25mg/5ml Inj IV PRN (07:30)
[2017-01-27] MEDS ORDERED: Enalaprilat 2.5mg/2ml Inj IV PRN (07:30)
[2017-01-27] MEDS ORDERED: Albuterol/Ipratropium 3ml neb HHN PRN (07:30)
[2017-01-27] MEDS ORDERED: Miralax 17gm pkt ORAL PRN (07:30)
[2017-01-27] MEDS ORDERED: Ketorolac 30mg Inj IV PRN (07:30)
[2017-01-27] MEDS ORDERED: Nitroglycerin Subl 0.4mg tab SL PRN (07:30)
[2017-01-27 08:00] VITALS: BP 183/113
[2017-01-27] MEDS ORDERED: Aspirin Baby 81mg ORAL SCH (09:00)
[2017-01-27] MEDS: Aspirin Baby 81mg ORAL SCH (09:01)
--- NOTE | 2017-01-27 09:01 | Diagnostic Imaging Report ---
Indication: Chest pain Technique: One view of the chest Comparison: 09/08/2016 Findings: Less optimal inspiration currently. Lungs and pleural space are clear. The heart is enlarged. The aorta is tortuous. Upper mediastinum is unremarkable Impression: Cardiomegaly. No acute process
[2017-01-27] MEDS ORDERED: HYDROmorphone 2mg tab ORAL PRN (11:00)
[2017-01-27 12:00] VITALS: BP 179/110
--- NOTE | 2017-01-27 12:01 | History and Physical ---
History of Present Illness General Date patient seen: Jan 27, 2017 Reason for Hospitalization: Chest Pain Present Illness HPI 56 year old female with morbid obesity, DM, HTN, presents with complaints of chest pain since this morning patient reports that she will up with the pain patient was history of rheumatoid arthritis Patient also had other complaints including bilateral knee pain and seemingly only Dilaudid helps her with the knee pain. Pt is admitted to telemetry to rule out ACS. Allergies: Coded Allergies: MORPHINE (Verified Allergy, Severe, rash, 07/31/13) SULFAMETHOXAZOLE (Unverified Allergy, Unknown, 09/15/14) TRIMETHOPRIM (Unverified Allergy, Unknown, 09/15/14) Medication History Scheduled Amlodipine Besylate* (Amlodipine Besylate*), 10 MG ORAL DAILY, (Reported) Aspirin* (Aspirin*), 81 MG ORAL DAILY, (Reported) Famotidine (Pepcid), 20 MG ORAL DAILY Furosemide* (Lasix*), 20 MG ORAL BID, (Reported) Gabapentin* (Gabapentin*), 800 MG ORAL BID, (Reported) Hydrochlorothiazide* (Hydrochlorothiazide*), Unknown Dose ORAL DAILY, (Reported) Hydromorphone HCl (Dilaudid), 2 MG ORAL THREE TIMES A DAY, (Reported) Metformin Hcl* (Metformin Hcl*), 500 MG ORAL TWICE A DAY, (Reported) Metoprolol Tartrate* (Metoprolol Tartrate*), 100 MG ORAL EVERY 12 HOURS, ( Reported) Potassium Chloride* (K-Dur*), 20 MEQ PO DAILY, (Reported) Prednisone* (Prednisone*), 40 MG ORAL DAILY Scheduled PRN Acetaminophen With Codeine (T#3) (Tylenol #3 Tab*), 1 TAB ORAL Q8H PRN for For Pain Albuterol Sulfate* (Albuterol Sulfate Mdi*), 2 PUFF INH Q4H PRN for cough/ wheezing Hydrocodone Bit/Acetaminophen 10-325* (Covert 10-325*), 1 TAB ORAL Q4H PRN for For Pain, (Reported) Hydrocodone Bit/Acetaminophen 5-325* (Covert 5-325*), 1 TAB ORAL Q6H PRN for For Pain Ibuprofen* (Motrin*), 600 MG ORAL Q8H PRN for For Pain Nitroglycerin (Nitrostat), 0.4 MG SL Q5M X3 DOSES PRN for For Pain, (Reported) Patient History Healthcare decision maker Resuscitation status Full Code Advanced Directive on File Past Medical/Surgical History Past Medical/Surgical History: (1) Rheumatoid arthritis (2) Diabetes mellitus type II, uncontrolled (3) Hypertension (4) Chronic pain (5) Osteoarthritis, knee Review of Systems Constitutional: Reports: weakness Eye: Reports: no symptoms ENT: Reports: no symptoms Respiratory: Reports: no symptoms Cardiovascular: Reports: no symptoms Physical Exam General Appearance: WD/WN, morbidly obese Lines, tubes and drains: peripheral HEENT: normocephalic, atraumatic Neck: non-tender, normal alignment Respiratory/Chest: chest wall non-tender, lungs clear, normal breath sounds Breasts: no masses Cardiovascular/Chest: normal peripheral pulses Abdomen: normal bowel sounds Genitourinary/Rectal: normal genital exam, normal rectal exam Extremities: normal range of motion Skin Exam: normal pigmentation 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 Last 24 Hour Vital Signs Date Time Temp Pulse Resp B/P (MAP) Pulse Ox O2 Delivery O2 Flow Rate FiO2 01/27/17 09:01 87 187/113 01/27/17 08:00 97.9 79 21 183/113 97 01/27/17 04:00 98.4 90 22 148/66 98 Room Air 01/27/17 04:00 87 01/27/17 02:35 97.2 84 22 155/74 98 Room Air 01/27/17 02:30 84 18 164/83 96 Room Air 01/27/17 01:55 98.0 01/27/17 00:36 98.0 01/26/17 22:49 98.0 01/26/17 22:41 98.2 84 22 156/86 98 Room Air 01/26/17 20:41 89 18 Room Air 01/26/17 20:41 98.0 89 18 182/105 98 Room Air 01/26/17 20:27 98.4 91 17 169/125 98 Room Air Laboratory Tests Test 01/26/17 20:57 White Blood Count 7.0 K/UL (4.8-10.8) Red Blood Count 5.40 M/UL (4.20-5.40) Hemoglobin 11.6 G/DL (12.0-16.0) L Hematocrit 41.4 % (37.0-47.0) Mean Corpuscular Volume 77 FL (80-99) L Mean Corpuscular Hemoglobin 21.5 PG (27.0-31.0) L Mean Corpuscular Hemoglobin Concent 28.1 G/DL (32.0-36.0) L Red Cell Distribution Width 17.1 % (11.6-14.8) H Platelet Count 204 K/UL (150-450) Mean Platelet Volume 10.3 FL (6.5-10.1) H Neutrophils (%) (Auto) 66.5 % (45.0-75.0) Lymphocytes (%) (Auto) 24.9 % (20.0-45.0) Monocytes (%) (Auto) 5.4 % (1.0-10.0) Eosinophils (%) (Auto) 2.1 % (0.0-3.0) Basophils (%) (Auto) 1.1 % (0.0-2.0) Sodium Level 143 MMOL/L (136-145) Potassium Level 3.5 MMOL/L (3.5-5.1) Chloride Level 106 MMOL/L (98-107) Carbon Dioxide Level 31 MMOL/L (21-32) Anion Gap 6 mmol/L (5-15) Blood Urea Nitrogen 13 mg/dL (7-18) Creatinine 0.8 MG/DL (0.55-1.30) Estimat Glomerular Filtration Rate > 60 mL/min (>60) Glucose Level 106 MG/DL (74-106) Calcium Level 9.8 MG/DL (8.5-10.1) Total Bilirubin 0.2 MG/DL (0.2-1.0) Aspartate Amino Transf (AST/SGOT) 10 U/L (15-37) L Alanine Aminotransferase (ALT/SGPT) 16 U/L (12-78) Alkaline Phosphatase 110 U/L (46-116) Total Creatine Kinase 45 U/L (26-308) Creatine Kinase MB < 0.5 NG/ML (0.0-3.6) Creatine Kinase MB Relative Index 1.1 Troponin I 0.003 ng/mL (0.000-0.056) Total Protein 7.9 G/DL (6.4-8.2) Albumin 3.8 G/DL (3.4-5.0) Globulin 4.1 g/dL Albumin/Globulin Ratio 0.9 (1.0-2.7) L Height (Feet): 5 Height (Inches): 4.00 Weight (Pounds): 303 Medications Current Medications Medications (Trade) Dose Ordered Sig/Rene Route PRN Reason Start Time Stop Time Status Last Admin Dose Admin Acetaminophen (Tylenol) 650 mg Q4H PRN ORAL FEVER 01/27/17 07:30 02/26/17 07:29 Acetaminophen/ Hydrocodone Bitart (Covert 10/325) 1 ea Q4H PRN ORAL Moderate Pain (Pain Scale 4-6) 01/27/17 11:00 02/03/17 10:59 Albuterol/ Ipratropium (DuoNeb 0.5-3(2.5)mg/3ml) 3 ml Q4H PRN HHN Shortness of Breath 01/27/17 07:30 02/01/17 07:29 Amlodipine Besylate (Norvasc) 10 mg DAILY ORAL 01/27/17 09:00 02/26/17 08:59 01/27/17 09:01 Aspirin (ASA) 81 mg DAILY ORAL 01/27/17 09:00 02/26/17 08:59 01/27/17 09:01 Dextrose (Dextrose 50%) STAT PRN IV Hypoglycemia 01/27/17 07:30 02/26/17 07:29 Diltiazem HCl (Cardizem) 10 mg Q1H PRN IV heart rate more than 120, 01/27/17 07:30 02/26/17 07:29 Enalaprilat (Vasotec) 2.5 mg Q6H PRN IV sbp more than 160 01/27/17 07:30 02/26/17 07:29 Gabapentin (Neurontin) 800 mg BID ORAL 01/27/17 09:00 02/26/17 08:59 01/27/17 09:00 Heparin Sodium (Porcine) (Heparin 5000 units/ml) 5,000 units EVERY 8 HOURS SUBQ 01/27/17 14:00 02/26/17 13:59 Hydromorphone HCl (Dilaudid) 2 mg Q6H PRN ORAL Severe Pain (Pain Scale 7-10) 01/27/17 11:00 02/03/17 10:59 01/27/17 10:30 Insulin Aspart (NovoLOG) BEFORE MEALS AND HS SUBQ 01/27/17 11:30 02/26/17 11:29 Ketorolac Tromethamine (Toradol 30mg) 30 mg Q6H PRN IV Breakthrough pain 4-10 01/27/17 10:30 02/01/17 07:29 Nitroglycerin (Ntg) 0.4 mg Q5M PRN SL Prn Chest Pain 01/27/17 07:30 02/26/17 07:29 Ondansetron HCl (Zofran) 4 mg Q6H PRN IVP Nausea & Vomiting 01/27/17 07:30 02/26/17 07:29 Pantoprazole (Protonix) 40 mg DAILY ORAL 01/27/17 09:00 02/26/17 08:59 01/27/17 09:00 Polyethylene Glycol (Miralax) 17 gm DAILYPRN PRN ORAL Constipation 01/27/17 07:30 02/26/17 07:29 Temazepam (Restoril) 15 mg HSPRN PRN ORAL Insomnia 01/27/17 07:30 02/03/17 07:29 Assessment/Plan Problem List: (1) ACS (acute coronary syndrome) ICD Codes: I24.9 - Acute ischemic heart disease, unspecified SNOMED: 097077485 (2) Osteoarthritis, knee ICD Codes: M17.9 - Osteoarthritis of knee, unspecified SNOMED: 111991615 (3) Diabetes mellitus type II, uncontrolled ICD Codes: E11.65 - Type 2 diabetes mellitus with hyperglycemia SNOMED: 70984127, 550238464 (4) Chronic pain ICD Codes: G89.29 - Other chronic pain SNOMED: 28188987 (5) Narcotic addiction ICD Codes: F11.20 - Opioid dependence, uncomplicated SNOMED: 01289568, 61293786 Assessment/Plan serial ekg, troponin echo cardio to see pain management SARAI GRAVES Jan 27, 2017 12:01
[2017-01-27] MEDS: NovoLOG Insulin Flexpen SUBQ SCH ×3 (12:25→21:43)
[2017-01-27] MEDS: Ketorolac 30mg Inj IV PRN ×2 (12:37→20:45)
[2017-01-27] MEDS: Heparin 5000 units/ml inj SUBQ SCH ×2 (15:00→21:44)
[2017-01-27 15:35] VITALS: BP 159/98
[2017-01-27] MEDS: DiphenhydrAMINE 50mg/ml Inj IVP PRN ×2 (17:16→23:52)
[2017-01-27] MEDS: Morphine Sulfate 10mg/ml Inj IVP PRN ×2 (17:16→23:53)
--- NOTE | 2017-01-27 19:56 | Cardiology Progress Note ---
Assessment/Plan Assessment/Plan [id number] hs of recurrent cp for 4 years apparentlyhad cath nothign abn was found epr pt at [facility] 9 mon ago i see no reason for any further coronary testing home tomorrow if torp remain neg adn echo normal wall motion Objective Last 24 Hour Vital Signs Date Time Temp Pulse Resp B/P (MAP) Pulse Ox O2 Delivery O2 Flow Rate FiO2 01/27/17 16:00 74 01/27/17 15:35 97.5 76 20 159/98 98 Room Air 01/27/17 12:00 70 01/27/17 12:00 98.2 76 22 179/110 97 Room Air 01/27/17 09:01 87 187/113 01/27/17 08:00 76 01/27/17 08:00 97.9 79 21 183/113 97 01/27/17 04:00 98.4 90 22 148/66 98 Room Air 01/27/17 04:00 87 01/27/17 02:35 97.2 84 22 155/74 98 Room Air 01/27/17 02:30 84 18 164/83 96 Room Air 01/27/17 01:55 98.0 01/27/17 00:36 98.0 01/26/17 22:49 98.0 01/26/17 22:41 98.2 84 22 156/86 98 Room Air 01/26/17 20:41 89 18 Room Air 01/26/17 20:41 98.0 89 18 182/105 98 Room Air 01/26/17 20:27 98.4 91 17 169/125 98 Room Air Intake and Output 01/27/17 01/28/17 19:00 07:00 Intake Total 780 ml Balance 780 ml Intake Oral 780 ml # Voids 3 Laboratory Tests Test 01/26/17 20:57 01/27/17 11:50 White Blood Count 7.0 K/UL (4.8-10.8) Red Blood Count 5.40 M/UL (4.20-5.40) Hemoglobin 11.6 G/DL (12.0-16.0) L Hematocrit 41.4 % (37.0-47.0) Mean Corpuscular Volume 77 FL (80-99) L Mean Corpuscular Hemoglobin 21.5 PG (27.0-31.0) L Mean Corpuscular Hemoglobin Concent 28.1 G/DL (32.0-36.0) L Red Cell Distribution Width 17.1 % (11.6-14.8) H Platelet Count 204 K/UL (150-450) Mean Platelet Volume 10.3 FL (6.5-10.1) H Neutrophils (%) (Auto) 66.5 % (45.0-75.0) Lymphocytes (%) (Auto) 24.9 % (20.0-45.0) Monocytes (%) (Auto) 5.4 % (1.0-10.0) Eosinophils (%) (Auto) 2.1 % (0.0-3.0) Basophils (%) (Auto) 1.1 % (0.0-2.0) Sodium Level 143 MMOL/L (136-145) Potassium Level 3.5 MMOL/L (3.5-5.1) Chloride Level 106 MMOL/L (98-107) Carbon Dioxide Level 31 MMOL/L (21-32) Anion Gap 6 mmol/L (5-15) Blood Urea Nitrogen 13 mg/dL (7-18) Creatinine 0.8 MG/DL (0.55-1.30) Estimat Glomerular Filtration Rate > 60 mL/min (>60) Glucose Level 106 MG/DL (74-106) Calcium Level 9.8 MG/DL (8.5-10.1) Total Bilirubin 0.2 MG/DL (0.2-1.0) Aspartate Amino Transf (AST/SGOT) 10 U/L (15-37) L Alanine Aminotransferase (ALT/SGPT) 16 U/L (12-78) Alkaline Phosphatase 110 U/L (46-116) Total Creatine Kinase 45 U/L (26-308) Creatine Kinase MB < 0.5 NG/ML (0.0-3.6) Creatine Kinase MB Relative Index 1.1 Troponin I 0.003 ng/mL (0.000-0.056) 0.001 ng/mL (0.000-0.056) Total Protein 7.9 G/DL (6.4-8.2) Albumin 3.8 G/DL (3.4-5.0) Globulin 4.1 g/dL Albumin/Globulin Ratio 0.9 (1.0-2.7) L MABEL GONZALEZ Jan 27, 2017 19:56
[2017-01-27 20:00] VITALS: BP 158/78
[2017-01-27] MEDS: Norco 10mg/325mg tab ORAL PRN (20:49)
[2017-01-28] VITALS: BP 170/105
[2017-01-28 01:47] VITALS: BP 128/74
[2017-01-28 04:20] VITALS: BP 143/51
--- NOTE | 2017-01-28 04:45 | Consultation ---
DATE OF CONSULTATION: 01/27/2017 CARDIOLOGY CONSULTATION CONSULTING PHYSICIAN: Hawk Navarrete M.D. REFERRING PHYSICIAN: Melina Lujan M.D. REASON FOR REFERRAL: Chest pain. HISTORY OF PRESENT ILLNESS: This is a middle-aged female, who has had chest pains for approximately 4 years, who presented to the hospital again because of the chest pain. She has had several hospitalizations at different hospitals including last one at [facility] wherein she apparently underwent coronary angiogram and she was told that there is nothing wrong with her heart. Now, she came into the hospital again and she was admitted here. The patient describes sharp shooting pain that lasted only a few seconds, but recurrent over a period of 30 minutes and get better, but not completely resolved when she takes some nitroglycerin at times, not every time and she only takes nitroglycerin on rare occasions. Nevertheless, she has had the same scenario for approximately 4 years. She has never been told she has had a heart attack, she has had several stress tests and apparently an angiogram at [facility] recently and as mentioned was told negative. There was no relieving or exacerbating factor noted by the patient, specifically no change with walking, talking, sleeping, sitting, twisting, turning, taking a deep breath, laying down, or sitting up that she has identified. PAST MEDICAL HISTORY: Positive for high blood pressure, obesity, history of asthma, and history of rheumatoid arthritis. ALLERGIES: There are no known drug allergies. SOCIAL HISTORY: Smokes 1-1/2 packs of cigarettes a day. No drug use. REVIEW OF SYSTEMS: GASTROINTESTINAL: Negative. GENITOURINARY: Negative. PULMONARY: Negative. CONSTITUTIONAL: Negative. PHYSICAL EXAMINATION: GENERAL: Shows to be a morbidly obese female, in no apparent respiratory distress. VITAL SIGNS: Blood pressure is anywhere between 146/66 to 187/113, temperature 97.5 degrees, and heart rate is 76. NECK: Supple. No jugular venous distention. No abdominojugular reflux noted. LUNGS: Clear to auscultation and percussion. CARDIAC: Regular rate and rhythm. No heaves, thrills, or gallops noted. ABDOMEN: Soft and obese. Positive bowel sounds. Nontender. EXTREMITIES: There is no clubbing, cyanosis, nor is there any edema. NEUROLOGIC: She is awake and responsive. LABORATORY AND DIAGNOSTIC VALUES: White count 7, hemoglobin 11.6, and platelet count 206,000. Sodium is 142, potassium 3.5, chloride 106, bicarbonate 31, BUN 13, creatinine 0.6, and glucose of 106. Liver function tests are normal. Troponin negative on two separate occasions. Albumin of 3.8. Chest x-ray is unremarkable, and she had a venous duplex of lower extremities that are unremarkable. Telemetry, sinus. EKG with normal sinus rhythm. No ST or T-wave abnormalities of any significant degree. ASSESSMENT AND PLAN: 1. Atypical chest pain, chronic recurrent over the past 4 years. 2. Tobacco use disorder. 3. Morbid obesity. 4. Rheumatoid arthritis. 5. History of hypertension. Dr. Lujan, this patient was seen in cardiac consultation. The patient recently underwent a cardiac catheterization approximately 9 months ago at [facility] according to herself. Nothing abnormal was found. She has no evidence of myonecrosis. Her EKG is unremarkable. She will have a second EKG to be performed, and I do not favor any more cardiac testing. Her chest x-ray is reportedly unremarkable, may be musculoskeletal in origin, although not reproducible. Since she has already had the ultimate test, the cardiac catheterization was reportedly normal according to the patient. I see no reason to refer for any further cardiac workup at this time, although an echocardiogram just to make sure there is no pericardial effusion should be considered. Hawk Navarrete M.D. DR: Rosetta JOB#: [id number] CC:
[2017-01-28] MEDS: Morphine Sulfate 10mg/ml Inj IVP PRN ×2 (06:06→12:11)
[2017-01-28] MEDS: DiphenhydrAMINE 50mg/ml Inj IVP PRN (06:06)
[2017-01-28] MEDS: Heparin 5000 units/ml inj SUBQ SCH (06:22)
[2017-01-28] MEDS: NovoLOG Insulin Flexpen SUBQ SCH ×2 (06:25→11:30)
[2017-01-28 08:00] VITALS: BP 156/96
[2017-01-28 08:32] LABS: LYMPHOCYTES % (AUTO) 24.1 % (20.0-45.0); MEAN CORPUSCULAR HEMOGLOBIN 23.4 PG (27.0-31.0); MEAN CORPUSCULAR HGB CONC 30.7 G/DL (32.0-36.0); MEAN CORPUSCULAR VOLUME 76 FL (80-99); MEAN PLATELET VOLUME 9.3 FL (6.5-10.1); MONOCYTES % (AUTO) 6.3 % (1.0-10.0); NEUTROPHILS % (AUTO) 66.5 % (45.0-75.0); PLATELET COUNT 180 K/UL (150-450); RED BLOOD COUNT 4.75 M/UL (4.20-5.40); RED CELL DISTRIBUTION WIDTH 16.9 % (11.6-14.8); WHITE BLOOD COUNT 6.3 K/UL (4.8-10.8)
[2017-01-28 08:37] LABS: INR 0.9 (0.9-1.1); PROTHROMBIN TIME 9.7 SEC (9.30-11.50)
--- NOTE | 2017-01-28 08:46 | Cardiology Report ---
APPROVED REPORT EKG Measurement Heart [id number] Normal sinus rhythm Possible Left atrial enlargement Borderline ECG
[2017-01-28 08:54] LABS: CHOLESTEROL 170 MG/DL (< 200); CHOLESTEROL/HDL RATIO 4.4 (3.3-4.4); THYROID STIMULATING HORMONE 0.705 uiU/mL (0.360-3.740)
[2017-01-28 08:56] LABS: CRP QUANT < 0.4 mg/dL (0.00-0.90)
[2017-01-28] MEDS: Aspirin Baby 81mg ORAL SCH (09:04)
[2017-01-28] MEDS: Ketorolac 30mg Inj IV PRN (09:05)
[2017-01-28 12:00] VITALS: BP 154/96
--- NOTE | 2017-01-28 12:02 | Cardiology Progress Note ---
Assessment/Plan Assessment/Plan 1. Atypical chest pain, chronic recurrent over the past 4 years. 2. Tobacco use disorder. 3. Morbid obesity. 4. Rheumatoid arthritis. 5. History of hypertension. The patient recently underwent a cardiac catheterization approximately 9 months ago at [facility] according to herself. Nothing abnormal was found. She has no evidence of myonecrosis. Her EKG is unremarkable. await echo if no effusion ok to dc home she compalins fo beign off balance dr lozoya to address Subjective Cardiovascular: Reports: chest pain Respiratory: Denies: shortness of breath Gastrointestinal/Abdominal: Denies: abdominal pain Genitourinary: Denies: burning Subjective say is off balance Objective Last 24 Hour Vital Signs Date Time Temp Pulse Resp B/P (MAP) Pulse Ox O2 Delivery O2 Flow Rate FiO2 01/28/17 09:03 78 156/96 01/28/17 08:00 98.2 78 18 156/96 95 Room Air 01/28/17 07:37 63 18 Room Air 21 01/28/17 06:36 97.0 01/28/17 04:20 97.0 69 20 143/51 97 Room Air 01/28/17 04:00 61 01/28/17 01:47 68 20 128/74 97 Room Air 01/28/17 00:25 176/105 01/28/17 00:00 79 01/28/17 00:00 98.0 72 18 170/105 97 Room Air 01/27/17 21:15 98.4 01/27/17 21:15 98.4 01/27/17 20:00 97.5 76 20 158/78 98 Room Air 01/27/17 20:00 79 01/27/17 20:00 82 01/27/17 16:00 74 01/27/17 15:35 97.5 76 20 159/98 98 Room Air General Appearance: no apparent distress, alert, obese Neck: supple Cardiovascular: normal rate, regular rhythm Respiratory/Chest: lungs clear, normal breath sounds Abdomen: non tender, soft Extremities: no swelling Laboratory Tests Test 01/28/17 07:15 White Blood Count 6.3 K/UL (4.8-10.8) Red Blood Count 4.75 M/UL (4.20-5.40) Hemoglobin 11.1 G/DL (12.0-16.0) L Hematocrit 36.2 % (37.0-47.0) L Mean Corpuscular Volume 76 FL (80-99) L Mean Corpuscular Hemoglobin 23.4 PG (27.0-31.0) L Mean Corpuscular Hemoglobin Concent 30.7 G/DL (32.0-36.0) L Red Cell Distribution Width 16.9 % (11.6-14.8) H Platelet Count 180 K/UL (150-450) Mean Platelet Volume 9.3 FL (6.5-10.1) Neutrophils (%) (Auto) 66.5 % (45.0-75.0) Lymphocytes (%) (Auto) 24.1 % (20.0-45.0) Monocytes (%) (Auto) 6.3 % (1.0-10.0) Eosinophils (%) (Auto) 2.0 % (0.0-3.0) Basophils (%) (Auto) 1.0 % (0.0-2.0) Erythrocyte Sedimentation Rate 31 MM/HR (0-30) H Prothrombin Time 9.7 SEC (9.30-11.50) Prothromb Time International Ratio 0.9 (0.9-1.1) Activated Partial Thromboplast Time 27 SEC (23-33) Troponin I 0.010 ng/mL (0.000-0.056) C-Reactive Protein, Quantitative < 0.4 mg/dL (0.00-0.90) Triglycerides Level 140 MG/DL (0-200) Cholesterol Level 170 MG/DL (< 200) LDL Cholesterol 118 mg/dL (<100) H HDL Cholesterol 39 MG/DL (40-60) L Cholesterol/HDL Ratio 4.4 (3.3-4.4) Thyroid Stimulating Hormone (TSH) 0.705 uiU/mL (0.360-3.740) Cyclic Citrullinated Peptide IgG Ab Pending Anti-Nuclear Antibody Screen Pending MABEL GONZALEZ Jan 28, 2017 12:02
--- NOTE | 2017-01-28 12:41 | Pulmonology Progress Note ---
Assessment/Plan Problems: (1) ACS (acute coronary syndrome) (2) Osteoarthritis, knee (3) Diabetes mellitus type II, uncontrolled (4) Chronic pain (5) Narcotic addiction Assessment/Plan pt had cardiac cath 9 month ago refusing echo ESR negative rheumatology saw the pt needs outpatient pain management Subjective ROS Limited/Unobtainable: No Constitutional: Reports: no symptoms HEENT: Repors: no symptoms Respiratory: Reports: no symptoms Cardiovascular: Reports: no symptoms Gastrointestinal/Abdominal: Reports: no symptoms Allergies: Coded Allergies: SULFAMETHOXAZOLE (Unverified Allergy, Unknown, 09/15/14) TRIMETHOPRIM (Unverified Allergy, Unknown, 09/15/14) MORPHINE (Verified Adverse Reaction, Severe, rash, 01/27/17) Verified with patient. She had itching with morphine 9 yrs ago. But the latest morphine shot was 2 yrs ago in a hospital but no adverse reaction at all. Objective Last 24 Hour Vital Signs Date Time Temp Pulse Resp B/P (MAP) Pulse Ox O2 Delivery O2 Flow Rate FiO2 01/28/17 12:00 98.0 70 18 154/96 96 Room Air 01/28/17 09:03 78 156/96 01/28/17 08:00 98.2 78 18 156/96 95 Room Air 01/28/17 07:37 63 18 Room Air 21 01/28/17 06:36 97.0 01/28/17 04:20 97.0 69 20 143/51 97 Room Air 01/28/17 04:00 61 01/28/17 01:47 68 20 128/74 97 Room Air 01/28/17 00:25 176/105 01/28/17 00:00 79 01/28/17 00:00 98.0 72 18 170/105 97 Room Air 01/27/17 21:15 98.4 01/27/17 21:15 98.4 01/27/17 20:00 97.5 76 20 158/78 98 Room Air 01/27/17 20:00 79 01/27/17 20:00 82 01/27/17 16:00 74 01/27/17 15:35 97.5 76 20 159/98 98 Room Air General Appearance: WD/WN HEENT: normocephalic, atraumatic Respiratory/Chest: chest wall non-tender, lungs clear Breasts: no masses Cardiovascular: normal peripheral pulses, normal rate, no gallop/murmur Abdomen: normal bowel sounds, soft, non tender, no organomegaly Laboratory Tests 01/28/17 07:15: White Blood Count 6.3, Red Blood Count 4.75, Hemoglobin 11.1L, Hematocrit 36.2L , Mean Corpuscular Volume 76L, Mean Corpuscular Hemoglobin 23.4L, Mean Corpuscular Hemoglobin Concent 30.7L, Red Cell Distribution Width 16.9H, Platelet Count 180, Mean Platelet Volume 9.3, Neutrophils (%) (Auto) 66.5, Lymphocytes (%) (Auto) 24.1, Monocytes (%) (Auto) 6.3, Eosinophils (%) (Auto) 2.0, Basophils (%) (Auto) 1.0, Erythrocyte Sedimentation Rate 31H, Prothrombin Time 9.7, Prothromb Time International Ratio 0.9, Activated Partial Thromboplast Time 27, Troponin I 0.010, C-Reactive Protein, Quantitative < 0.4, Triglycerides Level 140, Cholesterol Level 170, LDL Cholesterol 118H, HDL Cholesterol 39L, Cholesterol/HDL Ratio 4.4, Thyroid Stimulating Hormone (TSH) 0.705, Cyclic Citrullinated Peptide IgG Ab [Pending], Anti-Nuclear Antibody Screen [Pending] Current Medications Medications (Trade) Dose Ordered Sig/Rene Route PRN Reason Start Time Stop Time Status Last Admin Dose Admin Acetaminophen (Tylenol) 650 mg Q4H PRN ORAL FEVER 01/27/17 07:30 02/26/17 07:29 Acetaminophen/ Hydrocodone Bitart (Kincaid 10/325) 1 ea Q4H PRN ORAL Moderate Pain (Pain Scale 4-6) 01/27/17 11:00 02/03/17 10:59 01/27/17 20:49 Albuterol/ Ipratropium (DuoNeb 0.5-3(2.5)mg/3ml) 3 ml Q4H PRN HHN Shortness of Breath 01/27/17 07:30 02/01/17 07:29 Amlodipine Besylate (Norvasc) 10 mg DAILY ORAL 01/27/17 09:00 02/26/17 08:59 01/28/17 09:03 Aspirin (ASA) 81 mg DAILY ORAL 01/27/17 09:00 02/26/17 08:59 01/28/17 09:04 Dextrose (Dextrose 50%) STAT PRN IV Hypoglycemia 01/27/17 07:30 02/26/17 07:29 Diltiazem HCl (Cardizem) 10 mg Q1H PRN IV heart rate more than 120, 01/27/17 07:30 02/26/17 07:29 Diphenhydramine HCl (Benadryl) 25 mg Q6H PRN IVP Itching from Morphine 01/27/17 15:45 02/26/17 15:44 01/28/17 06:06 Enalaprilat (Vasotec) 2.5 mg Q6H PRN IV sbp more than 160 01/27/17 07:30 02/26/17 07:29 01/28/17 00:25 Gabapentin (Neurontin) 800 mg BID ORAL 01/27/17 09:00 02/26/17 08:59 01/28/17 09:04 Heparin Sodium (Porcine) (Heparin 5000 units/ml) 5,000 units EVERY 8 HOURS SUBQ 01/27/17 14:00 02/26/17 13:59 01/28/17 06:22 Insulin Aspart (NovoLOG) BEFORE MEALS AND HS SUBQ 01/27/17 11:30 02/26/17 11:29 01/28/17 06:25 Ketorolac Tromethamine (Toradol 30mg) 30 mg Q6H PRN IV Breakthrough pain 4-10 01/27/17 10:30 02/01/17 07:29 01/28/17 09:05 Morphine Sulfate (Morphine Sulfate) 4 mg Q6H PRN IVP Severe Pain (Pain Scale 7-10) 01/27/17 15:15 02/03/17 15:14 01/28/17 12:11 Nitroglycerin (Ntg) 0.4 mg Q5M PRN SL Prn Chest Pain 01/27/17 07:30 02/26/17 07:29 Ondansetron HCl (Zofran) 4 mg Q6H PRN IVP Nausea & Vomiting 01/27/17 07:30 02/26/17 07:29 Pantoprazole (Protonix) 40 mg DAILY ORAL 01/27/17 09:00 02/26/17 08:59 01/28/17 09:04 Polyethylene Glycol (Miralax) 17 gm DAILYPRN PRN ORAL Constipation 01/27/17 07:30 02/26/17 07:29 Temazepam (Restoril) 15 mg HSPRN PRN ORAL Insomnia 01/27/17 07:30 02/03/17 07:29 SARAI GRAVES Jan 28, 2017 12:41
[2017-01-28] MEDS: Norco 10mg/325mg tab ORAL PRN (13:52)
--- NOTE | 2017-01-28 13:55 | Consultation ---
History of Present Illness General Date patient seen: Jan 28, 2017 Present Illness Allergies: Coded Allergies: SULFAMETHOXAZOLE (Unverified Allergy, Unknown, 09/15/14) TRIMETHOPRIM (Unverified Allergy, Unknown, 09/15/14) MORPHINE (Verified Adverse Reaction, Severe, rash, 01/27/17) Verified with patient. She had itching with morphine 9 yrs ago. But the latest morphine shot was 2 yrs ago in a hospital but no adverse reaction at all. Medication History Scheduled Amlodipine Besylate* (Amlodipine Besylate*), 10 MG ORAL DAILY, (Reported) Aspirin* (Aspirin*), 81 MG ORAL DAILY, (Reported) Famotidine (Pepcid), 20 MG ORAL DAILY Furosemide* (Lasix*), 20 MG ORAL BID, (Reported) Gabapentin* (Gabapentin*), 800 MG ORAL BID, (Reported) Hydrochlorothiazide* (Hydrochlorothiazide*), Unknown Dose ORAL DAILY, (Reported) Hydromorphone HCl (Dilaudid), 2 MG ORAL THREE TIMES A DAY, (Reported) Metformin Hcl* (Metformin Hcl*), 500 MG ORAL TWICE A DAY, (Reported) Metoprolol Tartrate* (Metoprolol Tartrate*), 100 MG ORAL EVERY 12 HOURS, ( Reported) Potassium Chloride* (K-Dur*), 20 MEQ PO DAILY, (Reported) Prednisone* (Prednisone*), 40 MG ORAL DAILY Scheduled PRN Acetaminophen With Codeine (T#3) (Tylenol #3 Tab*), 1 TAB ORAL Q8H PRN for For Pain Albuterol Sulfate* (Albuterol Sulfate Mdi*), 2 PUFF INH Q4H PRN for cough/ wheezing Hydrocodone Bit/Acetaminophen 10-325* ([place] 10-325*), 1 TAB ORAL Q4H PRN for For Pain, (Reported) Hydrocodone Bit/Acetaminophen 5-325* ([place] 5-325*), 1 TAB ORAL Q6H PRN for For Pain Ibuprofen* (Motrin*), 600 MG ORAL Q8H PRN for For Pain Nitroglycerin (Nitrostat), 0.4 MG SL Q5M X3 DOSES PRN for For Pain, (Reported) Patient History Healthcare decision maker Resuscitation status Full Code Advanced Directive on File Physical Exam Last 24 Hour Vital Signs Date Time Temp Pulse Resp B/P (MAP) Pulse Ox O2 Delivery O2 Flow Rate FiO2 01/28/17 12:00 98.0 70 18 154/96 96 Room Air 01/28/17 09:03 78 156/96 01/28/17 08:00 98.2 78 18 156/96 95 Room Air 01/28/17 07:37 63 18 Room Air 21 01/28/17 06:36 97.0 01/28/17 04:20 97.0 69 20 143/51 97 Room Air 01/28/17 04:00 61 01/28/17 01:47 68 20 128/74 97 Room Air 01/28/17 00:25 176/105 01/28/17 00:00 79 01/28/17 00:00 98.0 72 18 170/105 97 Room Air 01/27/17 21:15 98.4 01/27/17 21:15 98.4 01/27/17 20:00 97.5 76 20 158/78 98 Room Air 01/27/17 20:00 79 01/27/17 20:00 82 01/27/17 16:00 74 01/27/17 15:35 97.5 76 20 159/98 98 Room Air Laboratory Tests Test 01/28/17 07:15 White Blood Count 6.3 K/UL (4.8-10.8) Red Blood Count 4.75 M/UL (4.20-5.40) Hemoglobin 11.1 G/DL (12.0-16.0) L Hematocrit 36.2 % (37.0-47.0) L Mean Corpuscular Volume 76 FL (80-99) L Mean Corpuscular Hemoglobin 23.4 PG (27.0-31.0) L Mean Corpuscular Hemoglobin Concent 30.7 G/DL (32.0-36.0) L Red Cell Distribution Width 16.9 % (11.6-14.8) H Platelet Count 180 K/UL (150-450) Mean Platelet Volume 9.3 FL (6.5-10.1) Neutrophils (%) (Auto) 66.5 % (45.0-75.0) Lymphocytes (%) (Auto) 24.1 % (20.0-45.0) Monocytes (%) (Auto) 6.3 % (1.0-10.0) Eosinophils (%) (Auto) 2.0 % (0.0-3.0) Basophils (%) (Auto) 1.0 % (0.0-2.0) Erythrocyte Sedimentation Rate 31 MM/HR (0-30) H Prothrombin Time 9.7 SEC (9.30-11.50) Prothromb Time International Ratio 0.9 (0.9-1.1) Activated Partial Thromboplast Time 27 SEC (23-33) Troponin I 0.010 ng/mL (0.000-0.056) C-Reactive Protein, Quantitative < 0.4 mg/dL (0.00-0.90) Triglycerides Level 140 MG/DL (0-200) Cholesterol Level 170 MG/DL (< 200) LDL Cholesterol 118 mg/dL (<100) H HDL Cholesterol 39 MG/DL (40-60) L Cholesterol/HDL Ratio 4.4 (3.3-4.4) Thyroid Stimulating Hormone (TSH) 0.705 uiU/mL (0.360-3.740) Cyclic Citrullinated Peptide IgG Ab Pending Anti-Nuclear Antibody Screen Pending Height (Feet): 5 Height (Inches): 4.00 Weight (Pounds): 303 Medications Current Medications Medications (Trade) Dose Ordered Sig/Rene Route PRN Reason Start Time Stop Time Status Last Admin Dose Admin Acetaminophen (Tylenol) 650 mg Q4H PRN ORAL FEVER 01/27/17 07:30 02/26/17 07:29 Acetaminophen/ Hydrocodone Bitart ([place] 10/325) 1 ea Q4H PRN ORAL Moderate Pain (Pain Scale 4-6) 01/27/17 11:00 02/03/17 10:59 01/28/17 13:52 Albuterol/ Ipratropium (DuoNeb 0.5-3(2.5)mg/3ml) 3 ml Q4H PRN HHN Shortness of Breath 01/27/17 07:30 02/01/17 07:29 Amlodipine Besylate (Norvasc) 10 mg DAILY ORAL 01/27/17 09:00 02/26/17 08:59 01/28/17 09:03 Aspirin (ASA) 81 mg DAILY ORAL 01/27/17 09:00 02/26/17 08:59 01/28/17 09:04 Dextrose (Dextrose 50%) STAT PRN IV Hypoglycemia 01/27/17 07:30 02/26/17 07:29 Diltiazem HCl (Cardizem) 10 mg Q1H PRN IV heart rate more than 120, 01/27/17 07:30 02/26/17 07:29 Diphenhydramine HCl (Benadryl) 25 mg Q6H PRN IVP Itching from Morphine 01/27/17 15:45 02/26/17 15:44 01/28/17 06:06 Enalaprilat (Vasotec) 2.5 mg Q6H PRN IV sbp more than 160 01/27/17 07:30 02/26/17 07:29 01/28/17 00:25 Gabapentin (Neurontin) 800 mg BID ORAL 01/27/17 09:00 02/26/17 08:59 01/28/17 09:04 Heparin Sodium (Porcine) (Heparin 5000 units/ml) 5,000 units EVERY 8 HOURS SUBQ 01/27/17 14:00 02/26/17 13:59 01/28/17 06:22 Insulin Aspart (NovoLOG) BEFORE MEALS AND HS SUBQ 01/27/17 11:30 02/26/17 11:29 01/28/17 06:25 Ketorolac Tromethamine (Toradol 30mg) 30 mg Q6H PRN IV Breakthrough pain 4-10 01/27/17 10:30 02/01/17 07:29 01/28/17 09:05 Morphine Sulfate (Morphine Sulfate) 4 mg Q6H PRN IVP Severe Pain (Pain Scale 7-10) 01/27/17 15:15 02/03/17 15:14 01/28/17 12:11 Nitroglycerin (Ntg) 0.4 mg Q5M PRN SL Prn Chest Pain 01/27/17 07:30 02/26/17 07:29 Ondansetron HCl (Zofran) 4 mg Q6H PRN IVP Nausea & Vomiting 01/27/17 07:30 02/26/17 07:29 Pantoprazole (Protonix) 40 mg DAILY ORAL 01/27/17 09:00 02/26/17 08:59 01/28/17 09:04 Polyethylene Glycol (Miralax) 17 gm DAILYPRN PRN ORAL Constipation 01/27/17 07:30 02/26/17 07:29 Temazepam (Restoril) 15 mg HSPRN PRN ORAL Insomnia 01/27/17 07:30 02/03/17 07:29 Assessment/Plan Assessment/Plan (1) Rheumatoid Arthritis (2) Multiple Joint Pain (3) Morbid obesity Seen dictated KENIA DELGADO Jan 28, 2017 13:55
--- NOTE | 2017-01-28 16:57 | Cardiology Report ---
APPROVED REPORT EXAM: Two-dimensional and M-mode echocardiogram with Doppler and color Doppler. INDICATION Left Ventricular Function M-Mode DIMENSIONS IVSd1.7 (0.7-1.1cm)Left Atrium (MM)3.6 (1.6-4.0cm) LVDd4.1 (3.5-5.6cm)Aortic Root3.8 (2.0-3.7cm) PWd1.6 (0.7-1.1cm)Aortic Cusp Exc.2.4 (1.5-2.0cm) LVDs2.3 (2.5-4.0cm) PWs2.6 cm Normal left ventricular chamber size, systolic function and wall motion. Left ventricular ejection fraction estimated to be 60-65 %. Mild left ventricular hypertrophy. Anterior Echo-free space, may be due to pericardial fat or effusion. Mild left atrial enlargement. Right atrium is within normal limits. Mild right ventricular enlargement. Focal aortic valve sclerosis with adequate cusp excursion. Mildly thickened mitral valve leaflets with normal excursion. Mild mitral annulus and aortic root calcification. Pulmonic valve not well visualized. Normal tricuspid valve structure. IVC dilated at 2.4 cm with physiologic collapse, esimated RAP is 10 mmHg. A color flow and spectral Doppler study was performed and revealed: Mild,aortic regurgitation. Mild mitral regurgitation. Mitral diastolic velocities suggest reduced left ventricular relaxation c/w mild LV diastolic dysfunction (Grade I ). Mild tricuspid regurgitation. Tricuspid systolic velocities suggests peak right ventricular systolic pressure of 33 mmHg, consistent with mild, moderate, severe pulmonary hypertension. No pulmonic regurgitation present.
--- NOTE | 2017-01-28 17:45 | Consultation ---
DATE OF CONSULTATION: 01/28/2017 PAIN MANAGEMENT CONSULTATION CONSULTING PHYSICIAN: Francisco Carter M.D. REFERRING PHYSICIAN: Melina Lujan M.D. PHYSICIAN ABRASIVE COATING MACHINE OPERATOR: Nando Cornejo CHIEF COMPLAINT: Generalized body pain. HISTORY OF PRESENT ILLNESS: This is a 56-year-old female, who is being seen on the telemetry floor of [facility] for initial comprehensive pain management consultation. The patient reports that she has been having generalized body pain due to rheumatoid arthritis and joint pain, on morphine intravenous at this time as per Dr. Lujan. She has been admitted under the care of Dr. Lujan for chest pain and has been seen by primary education professor at this time. The patient will be discharged as per Dr. Lujan later today. A prescription will be written for the patient in anticipation for discharge. She was advised to follow up with her primary care physician when discharged and primary education professor and she has no other complaints at this time. PAST MEDICAL HISTORY: Rheumatoid arthritis, morbid obesity, left arm nerve damage, hypertension, diabetes mellitus, and asthma. PAST SURGICAL HISTORY: Denies. MEDICATIONS: [place] [employer]. ALLERGIES: Bactrim. SOCIAL HISTORY: Smoker of tobacco. Denies alcohol and intravenous drug abuse. REVIEW OF SYSTEMS: Denies rash, fever, chills, sweating, dizziness, drowsiness, blurred vision, sore throat, or change in weight. No shortness of breath or chest pain. No nausea, vomiting, diarrhea, or blood in the stool or urine. No bowel or bladder incontinence. No dysuria. She is complaining of generalized body pain. PHYSICAL EXAMINATION: GENERAL: Alert, awake, and oriented x3. VITAL SIGNS: Blood pressure 154/96, heart rate 70, oxygen saturation is 96%, respiratory rate 18, and is temperature is 98 degrees Fahrenheit. Height is 5 feet 4 inches and weight is 203 pounds. HEENT: PERRLA. NECK: Range of motion is full in all directions. No tenderness to paracervical muscles. No adenopathy. LUNGS: Decreased breath sounds bilaterally. HEART: Regular. ABDOMEN: Obese. BACK: Range of motion is decreased in flexion and extension with tenderness to paraspinal muscles. No tenderness to trapezius or rhomboid muscles. EXTREMITIES: Upper extremity range of motion is decreased due to the patient's pain and condition. Motor is intact. No cyanosis. No clubbing. No edema. Sensory is intact. Reflexes are not obtainable. No adenopathy. Lower extremity motion is decreased due to the patient's pain and condition. Motor is intact. No cyanosis. No clubbing. No edema noted. Sensory is intact. Reflexes are not obtainable. No adenopathy. ASSESSMENT AND PLAN: This is a 56-year-old female with rheumatoid arthritis, multiple joint pain, and morbid obesity. The patient was given a prescription for [place] 10/325 one tablet every 4 to 6 hours, 25 tablets and was advised to follow up with her primary care physician and primary education professor as an outpatient. The patient was discussed with Dr. Carter and Dr. Carter concurred. We will follow the patient. Thank you very much for the courtesy of this consultation. Francisco Carter M.D. MANAN Cornejo DR: VY JOB#: [id number] CC:
--- NOTE | 2017-01-29 08:59 | Diagnostic Imaging Report ---
APPROVED REPORT CPT Code: 02178 Present Symptoms Comments: Pain BILATERAL: Imaging reveals a patent deep venous system bilaterally. There is no evidence of thrombus within the femoral, popliteal or tibial segments. The greater saphenous veins are also within normal limits. Doppler indicates normal spontaneous flow within these segments.
--- NOTE | 2017-01-29 09:46 | Consultation ---
DATE OF CONSULTATION: RHEUMATOLOGY CONSULTATION CONSULTING PHYSICIAN: Valeri Reyes M.D. REFERRING PHYSICIAN: Melina Lujan M.D. ATTENDING PHYSICIAN: Melina Lujan M.D. I was asked by Dr. Lujan to assess this 56-year-old patient following admission to [facility] ICU because of acute OK. Chart was reviewed. The patient interviewed. Full report will be dictated in the morning. Valeri Reyes M.D. DR: BYRON JOB#: [id number] CC:
[2017-01-29 17:11] LABS: ANTI-NUCLEAR ANTIBODY SCREEN Negative (Negative)
--- NOTE | 2017-01-30 13:16 | Discharge Summary ---
Discharge Summary Hospital Course Date of Admission Jan 26, 2017 at 23:09 Date of Discharge Jan 28, 2017 at 15:10 Admitting Diagnosis ACUTE CORONARY SYNDROME REGAN Nicholson is a 56 year old female who was admitted on Jan 26, 2017 at 23:09 for Acute Coronary Syndrome Hospital Course [id number] Discharge Discharge Disposition Patient was discharged to Home (01) Discharge Diagnoses: Nandini Tello NP Jan 30, 2017 13:16
[2017-01-30 20:09] LABS: CYCLIC CITRULLINATE PEPTIDE AB 6 units (0-19)
--- NOTE | 2017-01-31 01:46 | Discharge Summary 2 SIG ---
DATE OF ADMISSION: 01/26/2017 DATE OF DISCHARGE: 01/28/2017 CONSULTANTS: 1. Hawk Navarrete M.D. 2. Francisco Carter M.D. 3. Valeri Reyes M.D. BRIEF HOSPITAL COURSE: The patient is a 56-year-old female with morbid obesity, diabetes mellitus, and hypertension, presented with a chief complaint of chest pain. She has history of rheumatoid arthritis, cardiac disease, and diabetes. She had bilateral knee pain and noticed generalized weakness recently. On evaluation at ED, initial troponin was 0.003. EKG showed normal sinus rhythm with nonspecific ST to T-wave changes and chest x-ray showed no acute disease. There was increased pulmonary and interstitial mediastinal markings, cardiomegaly, with tortuous aorta. She was admitted to telemetry to rule out ACS. Cardiac enzymes and EKG were monitored. She had an echocardiogram that showed ejection fraction of 60% to 65%. The patient recently underwent cardiac catheterization approximately nine months ago at [facility] with normal results, deferred to undergo any further workup. Her EKG was unremarkable. She was given pain management and was eventually discharged home. FINAL DIAGNOSES: 1. Atypical chest pain, chronic and recurrent. 2. Tobacco use disorder. 3. Morbid obesity. 4. Rheumatoid arthritis. 5. Hypertension. 6. Chronic pain. 7. Osteoarthritis of the knee. DISPOSITION: The patient was discharged home. DISCHARGE MEDICATIONS: Refer to medication list. FOLLOWUP: The patient was advised to follow up with PMD in a week. Melina Lujan M.D. I have been assigned to dictate discharge summary on this account and I was not involved in the patient's management. Nandini Tello N.P. DR: Eyad JOB#: [id number] CC: FLAKITO
== END 2017-01-28 15:10 | disposition home or self-care (01) | DRG 203 ==
LOC: EMR 20:45 → ENRESERV 21:12 → 2E 23:09 → EDBEDREQ 01-27 01:22
DX: R07.89 Other chest pain (principal); E66.01 Morbid (severe) obesity due to excess calories; I10 Essential (primary) hypertension; F17.200 Nicotine dependence, unspecified, uncomplicated; M06.9 Rheumatoid arthritis, unspecified; G89.29 Other chronic pain; M17.9 Osteoarthritis of knee, unspecified; E11.9 Type 2 diabetes mellitus without complications; Z88.6 Allergy status to analgesic agent; Z88.2 Allergy status to sulfonamides; Z88.8 Allergy status to other drugs, medicaments and biological substances
CPT/HCPCS: 36415; 71010; 80053; 80061; 82550; 82553; 82962; 84443; 84484; 85025; 85610; 85651; 85730; 86039; 86140; 86200; 93005; 93306; 93970; 94664; 99285; J1815; J2405

== ENCOUNTER 2017-03-11 21:14 | Emergency (ER) | payer MEDICAID ==
[~2017-03-11] VITALS: Ht 162.6 cm; Wt 127.0 kg
[2017-03-11 21:58] LABS: BASOPHILS % (AUTO) 0.9 % (0.0-2.0); EOSINOPHILS % (AUTO) 1.6 % (0.0-3.0); LYMPHOCYTES % (AUTO) 28.5 % (20.0-45.0); MEAN CORPUSCULAR HEMOGLOBIN 22.3 PG (27.0-31.0); MEAN CORPUSCULAR HGB CONC 29.8 G/DL (32.0-36.0); MEAN CORPUSCULAR VOLUME 75 FL (80-99); MEAN PLATELET VOLUME 9.3 FL (6.5-10.1); MONOCYTES % (AUTO) 6.7 % (1.0-10.0); NEUTROPHILS % (AUTO) 62.3 % (45.0-75.0); PLATELET COUNT 200 K/UL (150-450); RED BLOOD COUNT 5.34 M/UL (4.20-5.40); RED CELL DISTRIBUTION WIDTH 15.9 % (11.6-14.8); WHITE BLOOD COUNT 7.6 K/UL (4.8-10.8)
[2017-03-11] MEDS ORDERED: DiphenhydrAMINE 50mg/ml Inj IVP ONE (22:00)
[2017-03-11] MEDS ORDERED: Morphine Sulfate 4mg/ml Inj IVP ONE (22:00)
[2017-03-11 22:03] LABS: APPEARANCE,URINE CLEAR; KETONES,URINE 1+ (NEGATIVE); LEUKOCYTE ESTERASE ,URINE 1+ (NEGATIVE); NITRITE,URINE NEGATIVE (NEGATIVE); PH,URINE 5 (4.5-8.0); PROTEIN,URINE 2+ (NEGATIVE); UROBILINOGEN,URINE 1 MG/DL (0.0-1.0)
[2017-03-11 22:09] LABS: ANION GAP 9 mmol/L (5-15); CALCIUM 8.9 MG/DL (8.5-10.1); CARBON DIOXIDE 28 MMOL/L (21-32); CHLORIDE 106 MMOL/L (98-107); CREATININE 0.8 MG/DL (0.55-1.30); GLOMERULAR FILTRATION RATE > 60 mL/min (>60); POTASSIUM 3.6 MMOL/L (3.5-5.1); SODIUM 143 MMOL/L (136-145)
[2017-03-11 22:12] LABS: RBC,URINE 0-2 /HPF (0 - 2)
[2017-03-11 22:13] VITALS: BP 178/99
[2017-03-11 22:13] LABS: ALANINE AMINOTRANSFERASE 17 U/L (12-78); ALBUMIN/GLOBULIN RATIO 1.1 (1.0-2.7); ASPARTATE AMINO TRANSFERASE 11 U/L (15-37); BACTERIA,URINE FEW /HPF; CALCIUM OXALATE CRYSTALS,UR FEW /LPF; LIPASE 148 U/L (73-393); SQUAMOUS EPITHELIAL CELL,UR FEW /LPF (NONE/OCC); TOTAL PROTEIN 7.4 G/DL (6.4-8.2)
[2017-03-11] MEDS ORDERED: Mylanta II UD 30ml ORAL ONE (22:15)
[2017-03-11 22:19] LABS: ICTOTEST POSITIVE
[2017-03-11] MEDS ORDERED: HYDROCODON-ACE1 EA15 ORAL (22:29)
--- NOTE | 2017-03-11 22:30 | Emergency Room Report ---
History of Present Illness General Chief Complaint: Abdominal Pain Source: Patient Present Illness HPI Is a 57-year-old female with history of high blood pressure and chronic pain. She been to the hospital multiple times in the past for different pain complaint. She complaining of arthritis pain. She lost her primary care who wrote for [place] #90 every month. Now she been going to hospital for pain medication. She was recently been here for chest pain with negative workup. She presents with chief complaint of abdominal pain. She said because she's been taking a lot of Motrin it's hurting her stomach. Pain is 10 out of 10 mostly epigastric area. No nausea no vomiting. No diarrhea. Worse with walking. No other complaint. Allergies: Coded Allergies: SULFAMETHOXAZOLE (Unverified Allergy, Unknown, 09/15/14) TRIMETHOPRIM (Unverified Allergy, Unknown, 09/15/14) MORPHINE (Verified Adverse Reaction, Severe, rash, 01/27/17) Verified with patient. She had itching with morphine 9 yrs ago. But the latest morphine shot was 2 yrs ago in a hospital but no adverse reaction at all. Patient History Past Medical History: see triage record, old chart reviewed, HTN Past Surgical History: other Pertinent Family History: none Social History: Denies: smoking Last Menstrual Period: none Now: No Immunizations: other Reviewed Nursing Documentation: PMH: Agreed, PSxH: Agreed Nursing Documentation-PMH Hx Cardiac Problems: Yes - RHEUMATOID ARTHRITIS Hx Hypertension: Yes Hx Asthma: Yes Hx Diabetes: Yes Hx Cancer: No Hx Gastrointestinal Problems: No Hx Neurological Problems: Yes - left arm nerve damage Review of Systems Eye: Denies: eye pain, blurred vision ENT: Denies: ear pain, nose congestion, throat swelling Respiratory: Denies: cough, shortness of breath Cardiovascular: Denies: chest pain, palpitations Gastrointestinal: Reports: abdominal pain, Denies: diarrhea, nausea, vomiting Musculoskeletal: Denies: back pain, joint pain Skin: Denies: rash Neurological: Denies: headache, numbness Endocrine: Denies: increased thirst, increased urine Hematologic/Lymphatic: Denies: easy bruising All Other Systems: negative except mentioned in HPI Physical Exam Vital Signs Date Time Temp Pulse Resp B/P (MAP) Pulse Ox O2 Delivery O2 Flow Rate FiO2 03/11/17 21:17 98.1 89 21 178/128 98 Room Air vitals with high blood pressure Sp02 EP Interpretation: reviewed, normal General Appearance: well appearing, no apparent distress, alert, obese Head: normocephalic, atraumatic Eyes: bilateral eye PERRL, bilateral eye EOMI ENT: hearing grossly normal, normal pharynx Neck: full range of motion, supple, no meningismus Respiratory: chest non-tender, lungs clear, normal breath sounds Cardiovascular #1: regular rate, rhythm, no murmur Gastrointestinal: normal bowel sounds, no mass, no organomegaly, no bruit, non- distended, tenderness - epigastric Musculoskeletal: back normal, gait/station normal, normal range of motion Psychiatric: mood/affect normal Skin: warm/dry Medical Decision Making Diagnostic Impression: Primary Impression: Hypertension Qualified Codes: I10 - Essential (primary) hypertension Additional Impressions: Opioid dependence Qualified Codes: F11.20 - Opioid dependence, uncomplicated Abdominal pain Qualified Codes: R10.84 - Generalized abdominal pain Anemia Qualified Codes: D64.9 - Anemia, unspecified Morbid obesity with BMI of 45.0-49.9, adult ER Course Patient with exacerbation of chronic pain. No evidence of ACS, PE, dissection, obstruction or acute abdomen. Better now. Initially she was morphine as allergy. I gave her morphine here without any side effect. She complaining of itchiness when she takes morphine. I gave her Benadryl. labs unremarkable Last Vital Signs Date Time Temp Pulse Resp B/P (MAP) Pulse Ox O2 Delivery O2 Flow Rate FiO2 03/11/17 22:13 98.1 75 13 178/99 97 Room Air Status: improved Disposition: HOME, SELF-CARE Condition: Stable Scripts Hydrocodone/Acetaminophen 5-325* (HYDROCODONE/ACETAMINOPHEN 5-325*) 1 Each Tablet 1 TAB ORAL Q6H Y for For Pain, #15 TAB 0 Refills Prov: FUNMI DIAS M.D. 03/11/17 Patient Instructions: Abdominal Pain, Adult Additional Instructions: Followup with your Dr. in 7 days for refill your medication. Return if worse. FUNMI DIAS M.D. Mar 11, 2017 22:30
[2017-03-11 22:45] VITALS: BP 178/99
== END 2017-03-11 22:47 | disposition home or self-care (01) ==
LOC: EMR 21:43
DX: I10 Essential (primary) hypertension (principal); F11.20 Opioid dependence, uncomplicated; R10.9 Unspecified abdominal pain; G89.29 Other chronic pain; E66.01 Morbid (severe) obesity due to excess calories; Z68.42 Body mass index [BMI] 45.0-49.9, adult; D64.9 Anemia, unspecified; M06.9 Rheumatoid arthritis, unspecified; E11.9 Type 2 diabetes mellitus without complications; J45.909 Unspecified asthma, uncomplicated
CPT/HCPCS: 36415; 80053; 81003; 83690; 85025; 96361; 96374; 96375; 99284; J1200; J2270; J2405

== ENCOUNTER 2017-07-11 20:11 | Emergency (ER) | payer MEDICAID ==
[~2017-07-11] VITALS: Ht 165.1 cm; Wt 124.7 kg
[~2017-07-11 20:11] MED LIST changes: +HYDROCODON-ACE1 EA15 ORAL
[2017-07-11] MEDS ORDERED: NORCO 10-325 T1 EACH ORAL ×2 (20:32→22:33)
[2017-07-11] MEDS ORDERED: NITROSTAT0.4 M2 SL (20:32)
[2017-07-11] MEDS ORDERED: Norco 5mg/325mg tab ORAL ONE (21:00)
[2017-07-11 21:11] LABS: EOSINOPHILS % (AUTO) 2.5 % (0.0-3.0); HEMATOCRIT 41.2 % (37.0-47.0); HEMOGLOBIN 12.2 G/DL (12.0-16.0); LYMPHOCYTES % (AUTO) 23.2 % (20.0-45.0); MEAN CORPUSCULAR VOLUME 74 FL (80-99); MONOCYTES % (AUTO) 4.6 % (1.0-10.0); NEUTROPHILS % (AUTO) 68.8 % (45.0-75.0); PLATELET COUNT 217 K/UL (150-450); RED BLOOD COUNT 5.55 M/UL (4.20-5.40); RED CELL DISTRIBUTION WIDTH 16.2 % (11.6-14.8); WHITE BLOOD COUNT 7.1 K/UL (4.8-10.8)
[2017-07-11 21:19] LABS: ANION GAP 5 mmol/L (5-15); BLOOD UREA NITROGEN 8 mg/dL (7-18); CALCIUM 9.5 MG/DL (8.5-10.1); CARBON DIOXIDE 33 MMOL/L (21-32); CHLORIDE 102 MMOL/L (98-107); CREATININE 0.7 MG/DL (0.55-1.30); POTASSIUM 3.6 MMOL/L (3.5-5.1); SODIUM 140 MMOL/L (136-145)
[2017-07-11 21:32] LABS: ALANINE AMINOTRANSFERASE 18 U/L (12-78); ALBUMIN 3.9 G/DL (3.4-5.0); ALBUMIN/GLOBULIN RATIO 1.1 (1.0-2.7); ALKALINE PHOSPHATASE 122 U/L (46-116); ASPARTATE AMINO TRANSFERASE 14 U/L (15-37); BILIRUBIN,TOTAL 0.2 MG/DL (0.2-1.0); CKMB 0.7 NG/ML (0.0-3.6); CREATINE KINASE 69 U/L (26-308)
[2017-07-11 22:00] VITALS: BP 180/99
[2017-07-11 22:38] VITALS: BP 152/86
--- NOTE | 2017-07-12 09:38 | Diagnostic Imaging Report ---
Indication: Dyspnea Comparison: 01/26/2017 A single view chest radiograph was obtained. Findings: No definite infiltrate or pulmonary vascular congestion identified. The heart is enlarged. The aorta is mildly enlarged consistent with atherosclerotic vascular disease. The bones are unremarkable. Impression: No acute disease
--- NOTE | 2017-07-12 14:34 | Emergency Room Report ---
History of Present Illness General Chief Complaint: Chest Pain Source: Patient Present Illness HPI Patient is a 57-year-old female who presented after increased chest pain for one week. Patient reported increased pain with movement. She states she has prior history of rheumatoid arthritis. Patient had previous visits for some similar symptoms in the past. Patient was noted to have had no cough. She denies any increased leg pain or swelling. She denies any change with walking. The patient not been vomiting. She reports having prior history of chronic pain. She denies taking any medications currently for rheumatoid arthritis Allergies: Coded Allergies: SULFAMETHOXAZOLE (Unverified Allergy, Unknown, 09/15/14) TRIMETHOPRIM (Unverified Allergy, Unknown, 09/15/14) MORPHINE (Verified Adverse Reaction, Severe, rash, 01/27/17) Verified with patient. She had itching with morphine 9 yrs ago. But the latest morphine shot was 2 yrs ago in a hospital but no adverse reaction at all. 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 Review of Systems All Other Systems: negative except mentioned in HPI Physical Exam Vital Signs Date Time Temp Pulse Resp B/P (MAP) Pulse Ox O2 Delivery O2 Flow Rate FiO2 07/11/17 20:24 98.6 89 16 169/109 100 Room Air 98.6 Sp02 EP Interpretation: reviewed, normal General Appearance: normal inspection, well appearing, no apparent distress, alert, GCS 15, non-toxic Head: atraumatic ENT: normal ENT inspection, hearing grossly normal, normal voice Neck: normal inspection, full range of motion, supple, no bony tend Respiratory: normal inspection, lungs clear, normal breath sounds, no respiratory distress, no retraction, no wheezing Cardiovascular #1: regular rate, rhythm, no edema Gastrointestinal: normal inspection, normal bowel sounds, non tender, soft, no guarding, no hernia Genitourinary: no CVA tenderness Musculoskeletal: normal inspection, back normal, normal range of motion Neurologic: normal inspection, alert, responsive, speech normal Psychiatric: normal inspection, judgement/insight normal, mood/affect normal Skin: normal inspection, normal color, no rash Medical Decision Making Diagnostic Impression: Primary Impression: Rheumatoid arthritis Additional Impressions: Chronic pain Opioid dependence ER Course Patient presented for chest pain . Differential diagnosis included but was not limited to acute coronary syndrome, pulmonary embolism, pneumonia, aortic dissection, shingles, pneumothorax, aortic dissection, esophageal rupture, pericarditis. Because of complexity of patient's case laboratory testing and imaging studies were ordered.The laboratory testing was unremarkable given the patient's prolonged period of pain I feel this is unlikely be cardiac. Patient appears to have some chest wall tenderness in this appears to be related to patient's arthritis. The patient is advised to follow up with primary care doctor in 1-2 days. Patient is advised to return if any worsening condition or if any changes in status that are concerning. This report is dictated with [id number] solution analyst software which may occasionally lead to discrepancies related to use of this software. Labs Test 07/11/17 20:45 White Blood Count 7.1 K/UL (4.8-10.8) Red Blood Count 5.55 M/UL (4.20-5.40) Hemoglobin 12.2 G/DL (12.0-16.0) Hematocrit 41.2 % (37.0-47.0) Mean Corpuscular Volume 74 FL (80-99) Mean Corpuscular Hemoglobin 22.1 PG (27.0-31.0) Mean Corpuscular Hemoglobin Concent 29.8 G/DL (32.0-36.0) Red Cell Distribution Width 16.2 % (11.6-14.8) Platelet Count 217 K/UL (150-450) Mean Platelet Volume 8.9 FL (6.5-10.1) Neutrophils (%) (Auto) 68.8 % (45.0-75.0) Lymphocytes (%) (Auto) 23.2 % (20.0-45.0) Monocytes (%) (Auto) 4.6 % (1.0-10.0) Eosinophils (%) (Auto) 2.5 % (0.0-3.0) Basophils (%) (Auto) 1.0 % (0.0-2.0) Sodium Level 140 MMOL/L (136-145) Potassium Level 3.6 MMOL/L (3.5-5.1) Chloride Level 102 MMOL/L (98-107) Carbon Dioxide Level 33 MMOL/L (21-32) Anion Gap 5 mmol/L (5-15) Blood Urea Nitrogen 8 mg/dL (7-18) Creatinine 0.7 MG/DL (0.55-1.30) Estimat Glomerular Filtration Rate > 60 mL/min (>60) Glucose Level 111 MG/DL (74-106) Calcium Level 9.5 MG/DL (8.5-10.1) Total Bilirubin 0.2 MG/DL (0.2-1.0) Aspartate Amino Transf (AST/SGOT) 14 U/L (15-37) Alanine Aminotransferase (ALT/SGPT) 18 U/L (12-78) Alkaline Phosphatase 122 U/L (46-116) Total Creatine Kinase 69 U/L (26-308) Creatine Kinase MB 0.7 NG/ML (0.0-3.6) Creatine Kinase MB Relative Index 1.0 Troponin I 0.000 ng/mL (0.000-0.056) Pro-B-Type Natriuretic Peptide 54 pg/mL (0-125) Total Protein 7.6 G/DL (6.4-8.2) Albumin 3.9 G/DL (3.4-5.0) Globulin 3.7 g/dL Albumin/Globulin Ratio 1.1 (1.0-2.7) Lipase 65 U/L (73-393) EKG Diagnostic Results Rate: normal Rhythm: NSR ST Segments: no acute changes Last Vital Signs Date Time Temp Pulse Resp B/P (MAP) Pulse Ox O2 Delivery O2 Flow Rate FiO2 07/11/17 22:38 98.6 82 12 152/86 100 Room Air 98.6 Status: improved Disposition: HOME, SELF-CARE Condition: Stable Scripts Hydrocodone Bit/Acetaminophen 10-325* (NORCO 10-325*) 1 Each Tablet 1 TAB ORAL Q4H PRN for For Pain, #12 TAB 0 Refills PRN PAIN Prov: Luis Enrique Lane 07/11/17 Referrals: [facility],REFERRING (PCP) Patient Instructions: Nonspecific Chest Pain, Chronic Pain Luis Enrique Lane Jul 12, 2017 14:34
--- NOTE | 2017-07-13 17:28 | Cardiology Report ---
APPROVED REPORT EKG Measurement Heart [id number] ID [id number] Normal sinus rhythm Normal ECG
== END 2017-07-11 22:45 | disposition home or self-care (01) ==
LOC: EMR 21:06
DX: M06.9 Rheumatoid arthritis, unspecified (principal); G89.29 Other chronic pain; F11.20 Opioid dependence, uncomplicated; R07.9 Chest pain, unspecified; E11.9 Type 2 diabetes mellitus without complications; I10 Essential (primary) hypertension; J45.909 Unspecified asthma, uncomplicated; Z88.1 Allergy status to other antibiotic agents; Z88.2 Allergy status to sulfonamides; Z88.6 Allergy status to analgesic agent
CPT/HCPCS: 36415; 71045; 80053; 82550; 82553; 83690; 83880; 84484; 85025; 93005; 96374; 99284; J1940